=== PATIENT | male | born 1950 | race Caucasian/White ===

== ENCOUNTER 2018-08-22 15:46 | Inpatient (IN) | payer MEDICARE, BC ==
[~2018-08-22 15:46] MED LIST: Lidocaine 1% PF 5 ML VIAL ONE; Ondansetron PF 4 MG/2 ML Vial ONE; PHENYLEPHRINE-NS 100 MCG/ML 10 ML SYRINGE ONE; PROPOFOL 200 MG/20 ML VIAL ONE; Rocuronium Bromide 10 MG/ML (10ML VIAL) ONE; ePHEDrine 50 MG/ML VIAL ONE
[2018-08-22 16:18] LABS: #Eosinphils 0.1 thou/uL (0.0-0.7); #Monocytes 0.8 thou/uL (0.11-0.59); #Neutrophils 13.1 thou/uL (1.40-6.50); %Basophils 0.1 % (0.0-1.0); %Eosinophils 0.5 % (0.0-10.0); %Lymphocytes 6.6 % (21.0-51.0); %Monocytes 5.2 % (0.0-10.0); %Neutrophils 87.6 % (42.0-75.0); Hemoglobin 12.9 g/dL (14.0-18.0); Mean Corpuscular HGB CONC 32.1 g/dL (32.0-36.0); Mean Corpuscular Hemoglobin 28.2 pg (27.0-31.0); Mean Platelet Volume 7.7 fL (7.4-10.4); Platelet Count 171 thou/uL (130-400); RBC Distribution Width 13.6 % (11.5-14.5); Red Blood Cell (RBC) Count 4.57 mill/uL (4.70-6.10); White Blood Cell (WBC) Count 14.9 thou/uL (4.8-10.8)
[2018-08-22 16:25] LABS: INR-International Normal Ratio 1.1; Prothrombin Time 13.8 SEC (12.0-14.7)
[2018-08-22 16:32] LABS: ALT (SGPT) 17 U/L (8-55); AST (SGOT) 28 U/L (5-34); Albumin 4.1 g/dL (3.4-4.8); Alkaline Phosphatase 78 U/L (40-150); Anion Gap 13 mmol/L (10-20); BUN (Urea Nitrogen) 32 mg/dL (8.4-25.7); Bilirubin, Total 0.8 mg/dL (0.2-1.2); Calc. Creatinine Clearance 0 mL/min (70-130); Calcium 9.5 mg/dL (7.8-10.44); Carbon Dioxide 27 mmol/L (23-31); Chloride 102 mmol/L (98-107); Estimated GFR-MDRD 41; Globulin 3.3 g/dL (2.4-3.5); Glucose 145 mg/dL (80-115); Potassium 3.9 mmol/L (3.5-5.1); Protein, Total 7.4 g/dL (5.8-8.1); Sodium 138 mmol/L (136-145)
--- NOTE | 2018-08-22 16:32 | RAD ---
PORTABLE CHEST ONE VIEW: 08/22/18 at 2:54 p.m. HISTORY: Fall. Left hip pain. FINDINGS/IMPRESSION: The heart size is borderline. There is a small right pleural effusion. No lobar consolidation, gabriela pulmonary edema or left pleural effusion is seen. No pneumothoraces are identified. There are postop changes in the cervical spine. Intraspinal leads are seen in the thoracic spine. POS: OFF
--- NOTE | 2018-08-22 16:46 | RAD ---
AP VIEW PELVIS: 08/22/18 HISTORY: Pelvic pain. Fall. AP view pelvis demonstrates surgical hardware seen in the lower lumbar region. Dorsal column stimulat or is in place. There is a proximal left femoral intertrochanteric fracture. No other acute abnormality seen. IMPRESSION: Acute left intertrochanteric fracture. POS: [facility]
--- NOTE | 2018-08-22 16:48 | RAD ---
LEFT FEMUR TWO VIEWS: 08/22/18 HISTORY: Fall. Left hip pain. FINDINGS/IMPRESSION: There is a mildly displaced/angulated fracture involving the base of the neck/intertrochanteric regio n of the left proximal femur. There are postop changes of total knee arthroplasty. 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 POS: OFF
[2018-08-22] MEDS ORDERED: Fentanyl 100 MCG/2 ML VIAL ONE (16:53)
[2018-08-22] MEDS ORDERED: Fleet Enema 133 ML BOT PR PRN (17:35)
[2018-08-22] MEDS ORDERED: Bisacodyl 10 MG SUPP PR PRN (17:35)
[2018-08-22] MEDS ORDERED: Milk Of Magnesia 30 ML UDCUP PO PRN (17:35)
[2018-08-22] MEDS ORDERED: traMADol HCl 50 MG TAB PO PRN ×3 (17:35→18:22)
[2018-08-22] MEDS ORDERED: Ondansetron PF 4 MG/2 ML Vial IVP PRN ×2 (17:35→18:22)
[2018-08-22] MEDS ORDERED: Fentanyl 100 MCG/2 ML VIAL SLOW IVP PRN ×2 (17:37)
[2018-08-22] MEDS ORDERED: Sodium Chloride 0.9% 1,000 ML IV SCH (17:45)
[2018-08-22] MEDS ORDERED: CEFAZOLIN 2 GM in Premix Bag 1 BAG IVPB SCH (17:45)
--- NOTE | 2018-08-22 17:47 | CT ---
CT OF LUMBAR SPINE WITHOUT CONTRAST 08/22/18 INDICATION: Fall and left hip pain and back pain. COMPARISON: CT abdomen and pelvis dated 11/13/16. FINDINGS: There are laminectomy changes of L3 through L5. Small wedge compression abnormality at L2 is stable. Grade I anterolisthesis of L4 and L5 with posterior lumbar interbody fusion. Construct is stable. The re is a dorsal column stimulator entering the posterior spinal canal at T12-L1. There is diffuse oste openia. There is scattered vascular calcifications. There is partial ankylosis of the SI joints. IMPRESSION: 1. No acute fracture or subluxation is evident. 2. Stable multilevel spondylosis of the lumbar spine. POS: [facility]
[2018-08-22] MEDS ORDERED: HYDROcodone/Acetaminophen 5/325 mg Tablet ONE (17:48)
--- NOTE | 2018-08-22 17:51 | CT ---
CT OF THE THORACIC SPINE WITHOUT CONTRAST 08/22/18 INDICATION: Fall with back pain. FINDINGS: There is dorsal column stimulator projecting over T7-T8. There is ACDF involving the visualized C5 th rough C7 vertebral levels. There is diffuse osteopenia. There is DISH-like changes involving the mid to lower thoracic spine. N o acute fracture or subluxation is evident. Small hiatal hernia. Fluid is present within the esophagus and may reflect reflux or esophageal dysm otility. There are scattered vascular calcifications. IMPRESSION: 1. No acute fracture or subluxation demonstrated. 2. Multilevel spondylosis of the thoracic spine. 3. Dorsal column stimulator. POS: [facility]
[2018-08-22] MEDS ORDERED: hydrALAZINE 20 MG/ML VIAL SLOW IVP PRN (18:22)
[2018-08-22] MEDS ORDERED: Dextrose 50% Abboject 50 ML SYRINGE SLOW IVP PRN (18:22)
[2018-08-22] MEDS ORDERED: Promethazine HCl 25 MG/ML VIAL IM PRN (18:22)
[2018-08-22] MEDS ORDERED: Dextrose 5% in Water 1,000 ML IV PRN (18:22)
[2018-08-22 19:05] VITALS: BMI 45.3
[2018-08-22] MEDS: Sodium Chloride 0.9% 1,000 ML IV SCH (20:08)
[2018-08-22] MEDS: Flecainide 50 MG TAB PO SCH (20:09)
[2018-08-22] MEDS: Famotidine 20 MG TAB PO SCH (20:09)
[2018-08-22] MEDS: Gabapentin 300 MG CAP PO SCH (20:09)
[2018-08-22] MEDS: Senokot S 8.6-50 MG TAB PO SCH (20:09)
[2018-08-22] MEDS: Simvastatin 20 MG TAB PO SCH (20:09)
[2018-08-22] MEDS: Acetaminophen 1,000 MG in Premix Bag 1 BAG IVPB SCH (20:09)
[2018-08-22] MEDS: traMADol HCl 50 MG TAB PO PRN (23:34)
[2018-08-23 00:50] LABS: Bilirubin Negative (Negative); Blood, Urine Negative (Negative); Clarity CLEAR (Clear); Glucose, Urine (Dipstick) 100 mg/dL (Negative); Leukocyte Negative (Negative); Nitrite Negative (Negative); Protein, Urine (Dipstick) Negative (Neg-Trace); Specific Gravity, Urine 1.017 (1.002-1.036); Urobilinogen 0.2 mg/dL (0.2-1.0)
--- NOTE | 2018-08-23 01:03 | HP ---
TRAUMA SURGEON: Augie Crawford DO CONSULTING PHYSICIAN: Daniel Paulino MD, Orthopedic Surgery. HISTORY OF PRESENT ILLNESS: Mr. Noel is a 67-year-old male patient who presented to the emergency department via [facility] after he suffered a mechanical fall today. The patient reports that he was trying to walk in a cumbersome area of his home when his left knee gave out. Subsequently, the rollator swiftly moved forward and he fell back onto his buttocks and left hip. At that time, he noted significant left-sided hip and back pain. He does report that he sat back and did hit his head on the ground, but denied loss of consciousness. He does take aspirin every day. He was not able to get up off the floor and EMS arrived and transported the patient via [facility] to the emergency department where he received an x-ray of the chest, pelvis and left femur demonstrating a left intertrochanteric femur fracture. At the time of my evaluation, the patient reported pain was generally located at the left anterior hip. He also did report some back pain and tenderness. He denied nausea, vomiting, or diarrhea. Pain is well controlled with fentanyl, but was quickly wearing off at that time. REVIEW OF SYSTEMS: All additional 10-point review of systems negative except as indicated above. PAST MEDICAL HISTORY: Diabetes, hypertension, colon cancer, obesity, CHF, paroxysmal atrial fibrillation, chronic neck and back pain with surgeries, nerve stimulator to spine. PAST SURGICAL HISTORY: Nerve stimulator placement, C-spine surgery, left knee replacement, 8 inches of colon resected due to colon cancer in 2007. SOCIAL HISTORY: The patient lives at home with his . He denies tobacco, drug, or alcohol use. MEDICATIONS: 1. Aspirin. 2. Flecainide. 3. Toujeo. 4. Victoza. 5. Vitamin D. 6. Magnesium. 7. Eye vitamins. 8. Klor-Con. 9. Furosemide. 10. Gabapentin. 11. Zoloft. 12. Metoprolol. 13. Simvastatin. 14. Ferrous sulfate. 15. Tylenol. ALLERGIES: TO MORPHINE AND CYCLOBENZAPRINE. PHYSICAL EXAMINATION: VITAL SIGNS: Blood pressure 178/82, heart rate 89, respirations 18, oxygen saturation 99% on room air. PRIMARY SURVEY: Airway intact. Adequate breath sounds bilaterally. 2+ distal pulses palpable in the bilateral radials, femorals and DPs. GCS is 15. Gross motor and sensation intact. Pupils are 3-2 bilaterally. No lacerations, bruises, or external bleeding. SECONDARY SURVEY: HEAD: Normocephalic and atraumatic. No gross palpable skull deformities or tenderness. EYES: 3-2, equal, round, reactive to light. ENT: No hemotympanum. No epistaxis. No septal hematoma. Midface stable to manipulation. No blood in the oropharynx. Dentition intact. No anterior neck injury/crepitus/tenderness. C-SPINE: No step-offs or deformities. Nontender. C-collar not in place. CHEST: Nontender. No crepitus. No abrasions or ecchymosis. Equal chest movement. ABDOMEN: Soft, nontender, nondistended. PELVIS: Stable to palpation. Nontender. No abrasions or ecchymosis. RECTAL: Deferred. GENITOURINARY: Deferred. EXTREMITIES: Palpable tenderness to the left anterior thigh. No abrasions or ecchymosis noted. 2+ pulses in the bilateral radials, femorals and DPs. BACK/SPINE: No step-offs or deformities of the T and L-spine. T and L tenderness. No ecchymoses or abrasions noted. NEUROLOGIC: GCS is 15. 5/5 strength in the bilateral enamel burner, plantar flexion, and dorsiflexion. Gross motor and sensation intact x4 extremities. LABORATORY FINDINGS: White count 14.9, hemoglobin 12.9, hematocrit 42.9, platelets 171. INR 1.0. Sodium 138, potassium 3.9, chloride 102, carbon dioxide 26, BUN 32, creatinine 1.68, glucose 145, lactate 1.1. DIAGNOSTIC FINDINGS: Chest x-ray demonstrated the heart size is borderline. There is a small right pleural effusion. No lobar consolidations, flank pulmonary edema or left pulmonary effusion is seen. No pneumothoraces are identified. There are postop changes of the cervical spine. Intraspinal leads are seen in the thoracic spine. X-ray of the pelvis demonstrates acute left intertrochanteric femur fracture. X-ray of the left femur demonstrates there is a mildly displaced/angulated fracture involving the base of the neck/intertrochanteric region of the left proximal femur. There are postoperative changes of the left knee arthroplasty. The large chondroma in the distal shaft of the left femur is stable since 11/20/2016. CT of the T-spine demonstrates no acute fractures or subluxations, demonstrated multiple spondylosis of the thoracic spine, dorsal column stimulator. CT of the L-spine demonstrates no acute fracture or subluxation is evident. Stable multilevel spondylosis of the lumbar spine. ASSESSMENT: 1. Status post mechanical fall from standing. 2. Left intertrochanteric femur fracture. 3. Acute traumatic pain. 4. Acute kidney injury. 5. History of diabetes, hypertension, colon cancer, congestive heart failure, paroxysmal atrial fibrillation, and chronic neck and back pain. PLAN: The patient will be admitted to the Trauma Service and will go to the OR tomorrow with Orthopedic Surgery, Dr. Paulino for fixation of the left femur fracture. He can have a diabetic diet for now and will be n.p.o. at midnight. He will also receive normal saline at 75 an hour. He will have Tylenol, tramadol, and gabapentin for pain with breakthrough morphine. We will re-evaluate this evening and can consider more aggressive pain management if p.o. medications are not effective. We will start home medications such as metoprolol, flecainide, Zoloft, and simvastatin. We will hold all other home medications for now. The patient is to be bed rest. PT/OT to evaluate postoperatively. Trauma was concerned for T and L-spine tenderness and increased pain since the fall. However, CT of the T and L-spine demonstrates no acute fracture or subluxation. Follow up UA results. We will start Pepcid, but we will hold chemo-DVT prophylaxis at this time. The patient previously taking Xarelto for paroxysmal atrial fibrillation, but reports he has not taken it recently. He is only taking aspirin now. The patient will be discussed with Dr. Crawford after this dictation. Job ID: [id number]
--- NOTE | 2018-08-23 01:24 | CON ---
DATE OF CONSULTATION: CONSULTING PHYSICIAN: Daniel Paulino MD REASON FOR CONSULTATION: Left hip intertrochanteric fracture. BRIEF CLINICAL HISTORY: Burak is a 67-year-old white male who was brought to [facility] via air EMS for complaints of left hip pain from [place]. Apparently, he fell landing on his left side with plain radiographs demonstrating a left hip displaced, angulated base neck intertrochanteric hip fracture on the left. The patient will be admitted by Trauma and our service was consulted for definitive orthopedic management of his problem. PAST MEDICAL HISTORY: Significant for diabetes type 2, peripheral vascular disease. PAST SURGICAL HISTORY: Significant for arthroplasty on the left knee as well as revision of same. Apparently, this knee buckled and gave way on him resulting in his fall. MEDICATIONS: Please see nurse's notes and medication reconciliation form. PHYSICAL EXAMINATION: VITAL SIGNS: Please see nurse's note. GENERAL: This is an obese, large male, appearing his stated age, no apparent distress, but uncomfortable. He is alert and appropriate with examiner, responsive. EXTREMITIES: Visual inspection of left lower extremity demonstrates a shortening in external rotation of the left lower extremity relative to the right. He holds it in a semi-flexed position and is quite uncomfortable. Range of motion is not assessed due to an underlying fracture. IMAGING: Imaging studies to the left hip demonstrates a slightly rotated and varus angulated left hip base neck intertrochanteric fracture on the left. PLAN: 1. The patient will be admitted by the Trauma Service. 2. The risks, benefits, options, alternatives, and rationale for proceeding with left hip transfemoral nail with lag screw fixation have been explained in detail with the patient. He is ready to proceed. All questions were answered. No guarantee of outcome stated or implied. 3. The patient has been posted to follow tomorrow morning for the above procedure. 4. Please see orders. Job ID: [id number]
[2018-08-23] MEDS: Acetaminophen 1,000 MG in Premix Bag 1 BAG IVPB SCH ×3 (02:03→14:49)
[2018-08-23] MEDS: traMADol HCl 50 MG TAB PO PRN ×2 (06:10→20:36)
[2018-08-23 06:11] LABS: #Eosinphils 0.1 thou/uL (0.0-0.7); #Monocytes 0.8 thou/uL (0.11-0.59); #Neutrophils 6.4 thou/uL (1.40-6.50); %Basophils 0.5 % (0.0-1.0); %Eosinophils 1.3 % (0.0-10.0); %Lymphocytes 21.1 % (21.0-51.0); %Monocytes 8.3 % (0.0-10.0); %Neutrophils 68.8 % (42.0-75.0); Mean Corpuscular HGB CONC 31.4 g/dL (32.0-36.0); Mean Corpuscular Hemoglobin 27.8 pg (27.0-31.0); Mean Corpuscular Volume 88.5 fL (78.0-98.0); Mean Platelet Volume 8.5 fL (7.4-10.4); Platelet Count 153 thou/uL (130-400); RBC Distribution Width 13.8 % (11.5-14.5); Red Blood Cell (RBC) Count 3.97 mill/uL (4.70-6.10); White Blood Cell (WBC) Count 9.3 thou/uL (4.8-10.8)
[2018-08-23 06:33] LABS: Anion Gap 11 mmol/L (10-20); BUN (Urea Nitrogen) 35 mg/dL (8.4-25.7); Calc. Creatinine Clearance 98 mL/min (70-130); Calcium 8.5 mg/dL (7.8-10.44); Carbon Dioxide 25 mmol/L (23-31); Chloride 102 mmol/L (98-107); Estimated GFR-MDRD 45; Glucose 98 mg/dL (80-115); Magnesium 2.1 mg/dL (1.6-2.6); Phosphorus 3.9 mg/dL (2.3-4.7); Potassium 3.6 mmol/L (3.5-5.1); Sodium 134 mmol/L (136-145)
[2018-08-23] MEDS: Famotidine 20 MG TAB PO SCH ×2 (08:13→20:30)
[2018-08-23] MEDS ORDERED: Tranexamic Acid 1,000 MG/10 ML VIAL ONE (08:55)
[2018-08-23] MEDS ORDERED: Fentanyl 100 MCG/2 ML VIAL SLOW IVP PRN (09:24)
[2018-08-23] MEDS ORDERED: Fleet Enema 133 ML BOT PR PRN (09:24)
[2018-08-23] MEDS ORDERED: Ondansetron PF 4 MG/2 ML Vial IVP PRN (09:24)
[2018-08-23] MEDS ORDERED: Bisacodyl 10 MG SUPP PR PRN (09:24)
[2018-08-23] MEDS ORDERED: Milk Of Magnesia 30 ML UDCUP PO PRN (09:24)
[2018-08-23] MEDS ORDERED: Ondansetron ODT 4 MG TAB PO PRN (09:24)
[2018-08-23] MEDS ORDERED: Cepastat Lozenges 1 LOZ PO PRN (09:24)
[2018-08-23] MEDS ORDERED: Fentanyl 100 MCG/2 ML VIAL ONE ×3 (09:45→12:05)
[2018-08-23] MEDS ORDERED: Ondansetron HCl/PF 4 MG/2 ML Vial IVP PRN ×2 (11:51→11:52)
[2018-08-23] MEDS ORDERED: Promethazine HCl 25 MG/ML VIAL SLOW IVP PRN ×2 (11:51→11:52)
[2018-08-23] MEDS ORDERED: Promethazine HCl 25 MG/ML VIAL IM PRN ×2 (11:51→11:52)
--- NOTE | 2018-08-23 11:51 | RAD ---
TWO VIEWS OF THE LEFT FEMUR. COMPARISON: 08/22/2018. HISTORY: Left femur fracture. FINDINGS/IMPRESSION: Multiple limited intraoperative fluoroscopic views of the left femur were submitted for interpretatio n. The patient has ongoing intramedullary marisa fixation of the intratrochanteric femur fracture. No perihardware lucency is seen. POS: [facility]
[2018-08-23] MEDS ORDERED: Ketorolac Tromethamine 30 MG/ML VIAL IVP PRN (11:52)
[2018-08-23] MEDS ORDERED: Ketorolac Tromethamine 30 MG/ML VIAL ONE (11:57)
[2018-08-23] MEDS ORDERED: Promethazine HCl 25 MG/ML VIAL ONE (12:01)
--- NOTE | 2018-08-23 12:27 | OP ---
DATE OF PROCEDURE: 08/23/2018 PREOPERATIVE DIAGNOSIS: Left hip two-part intertrochanteric fracture. POSTOPERATIVE DIAGNOSIS: Left hip two-part intertrochanteric fracture. PROCEDURE PERFORMED: Left hip short transfemoral nail fixation. ELECTRIC ARC WELDER: Jose Alfredo Peterson PA-C. ANESTHESIA: General via endotracheal tube. COMPONENTS USED: Synthes 12 mm short transfemoral nail with a 105 mm lag screw and a 38 mm distal interlocking screw. FINDINGS: Intertrochanteric fracture as described on plain radiographs. DRAINS: None. SPECIMENS: None. COMPLICATIONS: None. COUNTS: Correct. INDICATION FOR SURGERY: Burak is a 67-year-old male, who fell yesterday resulting in left hip intertrochanteric fracture. He was admitted to the hospital yesterday evening and our service was consulted for definitive treatment of this problem. PROCEDURE IN DETAIL: After informed consent was obtained in the preoperative holding area, the patient received preoperative antibiotics, was taken to the operative suite and positioned appropriately on the fracture table, and after adequate anesthesia was obtained, the patient was positioned appropriately. The left hip was then visualized using fluoroscopy. In-line longitudinal traction and reduction maneuvers were performed until near anatomic reduction was obtained. The left hip and lower extremity were then prepped and draped in usual sterile fashion. Prior to incision, a time-out was called and all members of the surgical team agreed upon site, surgeon, and patient. Once this was completed, a longitudinal incision was made 2 fingerbreadths above the tip of the trochanter noted by palpation. The IT band was then incised sharply. The tip of the trochanter was palpated and using the posterior 1/3 of the trochanter, the guidepin was then placed down the length of the canal. This was confirmed in 2 planes with fluoroscopy. The 15 mm opening reamer was then used to open the tip of the trochanter and the nail was then slid down and malleted firmly into place. The outrigger was then used to place the lag screw guide pin. We chose posterior inferior screw placement and this was over reamed with the lateral cortex reamer and intramedullary reaming was carried up to the appropriate length. The pin was then used to guide the lag screw in place and we used minimal reduction in compression to accomplish this. Once completed, the guidepin was then removed and the outrigger was used to place the distal interlocking screw. We chose a 2-incision technique to perform this. The locking gate was closed on the lag screw. The outrigger was removed and final fluoroscopic films were obtained in AP, lateral, and a 20-degree trauma oblique. Happy with that anatomic reduction, both incisions were copiously irrigated with normal saline and primary closure was accomplished with a 0 in the IT band and 2-0 in subcutaneous layer and stainless steel юлия were used to reapproximate the skin. Sterile dressings were applied to both incisions. Procedure was terminated without any complications. The patient was removed from the fracture table, taken to the recovery room in stable condition. Job ID: [id number]
[2018-08-23] MEDS ORDERED: HYDROcodone/Acetaminophen 10/325 mg Tablet PO PRN (13:11)
[2018-08-23] MEDS: Gabapentin 300 MG CAP PO SCH ×3 (14:47→20:30)
[2018-08-23] MEDS: Flecainide 50 MG TAB PO SCH ×2 (14:47→20:30)
[2018-08-23] MEDS: Polyethylene Glycol 3350 17 GM Packet PO SCH (14:48)
[2018-08-23] MEDS: HYDROcodone/Acetaminophen 10/325 mg Tablet PO PRN (15:13)
[2018-08-23] MEDS: Sodium Chloride 0.9% 1,000 ML IV SCH ×3 (16:04→20:29)
[2018-08-23] MEDS: CEFAZOLIN 2 GM in Premix Bag 1 BAG IVPB SCH (17:10)
[2018-08-23] MEDS: HumaLOG 300 UNITS/3 ML VIAL SC PRN (17:18)
--- NOTE | 2018-08-23 18:05 | PRG ---
DATE OF SERVICE: 08/23/2018 SUBJECTIVE: Mr. Noel is a 67-year-old man who is status post left hip transfemoral nail fixation today to treat an intertrochanteric left femur fracture. Postoperatively, the patient is awake and alert, reporting adequate pain control. He moves all extremities and answers questions appropriately. OBJECTIVE: VITAL SIGNS: Include blood pressure 133/81, pulse is 65, respiratory rate is 16, temperature is 97.6 degrees Fahrenheit, and oxygen saturation 95% on 2 L by nasal cannula oxygen. HEART: Reveals regular rate and rhythm. LUNGS: Clear to auscultation bilaterally. His breathing, regular and nonlabored. ABDOMEN: Soft, nontender, and nondistended. NEUROLOGIC: Reveals no focal deficits present. LABORATORY FINDINGS: Today include a CBC with 9300 white blood cells, hemoglobin and hematocrit 11.0 and 35.2 respectively. Platelet count is 153,000. Metabolic profile; sodium 134, potassium 3.6, chloride is 102, bicarb 25, BUN 35, creatinine is 1.55, glucose is 98, magnesium is 2.1, and phosphorus is 3.9. IMPRESSION: 1. Postoperative day #0, status post transfemoral left hip nail fixation. 2. Stable acute blood loss anemia. 3. Resolving acute on chronic renal insufficiency. 4. Acute hypokalemia. PLAN: 1. Correct abnormal electrolytes. 2. Initiate physical and occupational therapy. 3. Anticipate discharge in next 24 to 48 hours if the patient remains hemodynamically stable and achieving activities of daily living. Job ID: [id number]
[2018-08-23] MEDS ORDERED: Tamsulosin HCl 0.4 MG CAP PO SCH (19:15)
[2018-08-23] MEDS: Senokot S 8.6-50 MG TAB PO SCH ×2 (19:41→20:29)
[2018-08-23] MEDS: Simvastatin 20 MG TAB PO SCH (20:30)
[2018-08-24] MEDS: CEFAZOLIN 2 GM in Premix Bag 1 BAG IVPB SCH (00:17)
[2018-08-24] MEDS: traMADol HCl 50 MG TAB PO PRN ×2 (04:23→13:04)
[2018-08-24 08:01] LABS: Hemoglobin 9.5 g/dL (14.0-18.0); Mean Corpuscular HGB CONC 31.9 g/dL (32.0-36.0); Mean Corpuscular Hemoglobin 27.9 pg (27.0-31.0); Mean Corpuscular Volume 87.6 fL (78.0-98.0); Mean Platelet Volume 8.2 fL (7.4-10.4); Platelet Count 126 thou/uL (130-400); RBC Distribution Width 13.7 % (11.5-14.5); Red Blood Cell (RBC) Count 3.39 mill/uL (4.70-6.10); White Blood Cell (WBC) Count 8.2 thou/uL (4.8-10.8)
[2018-08-24 08:18] LABS: Anion Gap 12 mmol/L (10-20); BUN (Urea Nitrogen) 34 mg/dL (8.4-25.7); Calc. Creatinine Clearance 88 mL/min (70-130); Calcium 8.3 mg/dL (7.8-10.44); Carbon Dioxide 27 mmol/L (23-31); Chloride 99 mmol/L (98-107); Estimated GFR-MDRD 40; Glucose 162 mg/dL (80-115); Sodium 134 mmol/L (136-145)
[2018-08-24] MEDS: Polyethylene Glycol 3350 17 GM Packet PO SCH (08:34)
[2018-08-24] MEDS: Senokot S 8.6-50 MG TAB PO SCH ×2 (08:34→21:00)
[2018-08-24] MEDS: Multivitamin W/ Minerals 1 TAB PO SCH (08:34)
[2018-08-24] MEDS: Tamsulosin HCl 0.4 MG CAP PO SCH (08:34)
[2018-08-24] MEDS: Gabapentin 300 MG CAP PO SCH ×3 (08:35→21:00)
[2018-08-24] MEDS: Famotidine 20 MG TAB PO SCH ×2 (08:35→21:01)
[2018-08-24] MEDS: Ferrous Gluconate 324 MG TAB PO SCH ×2 (08:35→17:14)
[2018-08-24] MEDS: Flecainide 50 MG TAB PO SCH ×2 (08:38→21:00)
[2018-08-24] MEDS ORDERED: Enoxaparin Sodium 40 MG/0.4 ML SYRINGE SC SCH (09:00)
--- NOTE | 2018-08-24 12:11 | PRG ---
DATE OF SERVICE: 08/24/2018 SUBJECTIVE: Burak is a 67-year-old white male, postop day 1 from left hip intertrochanteric femoral fracture secondary to fall, treated with short transfemoral nail yesterday. He is doing relatively well. He has had some episodes of hypotension, therefore his metoprolol has been held and he has not had any Raleigh since yesterday around noon. His hemoglobin is 9.5. OBJECTIVE: VITAL SIGNS: Temperature 99.2, pulse 76, respiratory rate is 20 and unlabored, O2 saturation 95% on room air. His blood pressure is 100/64. GENERAL: He is alert, oriented to person, place, time, and situation. He looks a little pasty, but he is appropriate with examiner and responsive. Color is adequate. EXTREMITIES: Visual inspection of the left lower extremity demonstrates his incision to be clean and closed. He is neurovascular intact. There is no malrotation or shortening of the left lower extremity. IMPRESSION: 1. A 67-year-old male, postop day 1, left hip intertrochanteric fracture treated with transfemoral nail. 2. Diabetes type 2. 3. Hypotension secondary to possibly blood loss. PLAN: 1. Hold the metoprolol. Hold the Raleigh and fentanyl. Treat only with Ultram. 2. Recheck tomorrow. Job ID: [id number]
[2018-08-24] MEDS: HumaLOG 300 UNITS/3 ML VIAL SC PRN ×3 (12:58→21:08)
[2018-08-24] MEDS: HYDROcodone/Acetaminophen 10/325 mg Tablet PO SCH ×2 (13:07→21:02)
--- NOTE | 2018-08-24 16:10 | PRG ---
DATE OF SERVICE: 08/24/2018 SUBJECTIVE: This is a 67-year-old man, who is status post left hip transfemoral nail fixation postop day #1 for repair of an intertrochanteric left femur fracture. It was reported that the patient had some confusion this morning and possibly from too much medication. On exam this morning, the patient is awake, alert, in no distress. Reports the pain is well controlled. The family at bedside and the patient seems to be his normal self and alert and not drowsy. The patient with good appetite and denies any complaints at this time. OBJECTIVE: VITAL SIGNS: Temperature 99.2, pulse 76, respirations 20, SpO2 of 95% on room air, blood pressure 100/64. GENERAL: The patient is awake and alert, in no distress. Lying in bed. HEART: Regular rate and rhythm. LUNGS: Clear to auscultation bilaterally. Breathing is regular and nonlabored. ABDOMEN: Soft, nontender, nondistended. NEUROLOGIC: Reveals no focal deficits. LABORATORY DATA: WBC 8.2, RBC 3.39, hemoglobin 9.5, hematocrit 29.7, platelets 126. Sodium 134, potassium 4.0, chloride 99, CO2 of 27, anion gap 12, BUN 34, creatinine 1.72, estimated GFR 40, glucose 162, calcium 8.3. IMPRESSION: 1. Postoperative day #1 status post transfemoral left hip nail fixation. 2. Stable acute blood loss anemia. 3. Resolving acute on chronic renal insufficiency. PLAN: We will encourage physical and occupational therapy. We will also encourage the patient to get out of bed more and up in the chair. We will discontinue the patient's p.r.n. hydrocodone, and change his schedule to q.8 hours. The patient was taken off Lovenox for DVT prophylaxis and placed on aspirin 81 mg b.i.d. as the patient has chronic renal insufficiency. The patient wishes to go home with on discharge. We will place him in rehab screen in case the patient changes his mind and feels that he does need inpatient rehab. The patient was examined with Dr. Crawford. Job ID: [id number]
[2018-08-24] MEDS: Simvastatin 20 MG TAB PO SCH (21:00)
[2018-08-24] MEDS: Aspirin 81 mg Enteric Coated Tablet PO SCH (21:02)
[2018-08-25 04:53] LABS: Hemoglobin 8.5 g/dL (14.0-18.0); Mean Corpuscular HGB CONC 31.7 g/dL (32.0-36.0); Mean Corpuscular Hemoglobin 28.2 pg (27.0-31.0); Mean Corpuscular Volume 88.7 fL (78.0-98.0); Mean Platelet Volume 8.5 fL (7.4-10.4); Platelet Count 106 thou/uL (130-400); RBC Distribution Width 13.7 % (11.5-14.5); Red Blood Cell (RBC) Count 3.02 mill/uL (4.70-6.10); White Blood Cell (WBC) Count 6.9 thou/uL (4.8-10.8)
[2018-08-25 05:05] LABS: Anion Gap 9 mmol/L (10-20); BUN (Urea Nitrogen) 33 mg/dL (8.4-25.7); Calc. Creatinine Clearance 83 mL/min (70-130); Calcium 8.4 mg/dL (7.8-10.44); Carbon Dioxide 29 mmol/L (23-31); Chloride 99 mmol/L (98-107); Estimated GFR-MDRD 37; Glucose 181 mg/dL (80-115); Sodium 133 mmol/L (136-145)
[2018-08-25] MEDS: HYDROcodone/Acetaminophen 10/325 mg Tablet PO SCH ×3 (05:29→21:00)
[2018-08-25] MEDS: HumaLOG 300 UNITS/3 ML VIAL SC PRN ×4 (05:34→21:01)
[2018-08-25] MEDS ORDERED: Bisacodyl 10 MG SUPP PR SCH (08:30)
[2018-08-25] MEDS: Famotidine 20 MG TAB PO SCH ×2 (08:42→20:58)
[2018-08-25] MEDS: Aspirin 81 mg Enteric Coated Tablet PO SCH ×2 (08:42→20:58)
[2018-08-25] MEDS: Senokot S 8.6-50 MG TAB PO SCH ×2 (08:42→20:58)
[2018-08-25] MEDS: Polyethylene Glycol 3350 17 GM Packet PO SCH (08:42)
[2018-08-25] MEDS: Flecainide 50 MG TAB PO SCH ×2 (08:42→20:58)
[2018-08-25] MEDS: Multivitamin W/ Minerals 1 TAB PO SCH (08:43)
[2018-08-25] MEDS: Gabapentin 300 MG CAP PO SCH ×3 (08:43→20:58)
[2018-08-25] MEDS: Tamsulosin HCl 0.4 MG CAP PO SCH (08:43)
[2018-08-25] MEDS: Ferrous Gluconate 324 MG TAB PO SCH ×2 (08:43→17:55)
--- NOTE | 2018-08-25 15:45 | PRG ---
DATE OF SERVICE: 08/25/2018 SUBJECTIVE: This is a 67-year-old gentleman, who is status post left hip transfemoral nail fixation postop day #2 for repair of his intertrochanteric left femur fracture. The patient is awake and alert today, sitting up on the side of the bed. The patient had no overnight events. The patient reports good appetite and denies any nausea or vomiting. The patient reports good pain control. The patient continues to have Greenberg in place due to his urinary retention post surgery. OBJECTIVE: VITAL SIGNS: Temperature 98.2, pulse 82, respirations 18, SpO2 96% on room air, and blood pressure 109/62. PHYSICAL EXAMINATION: GENERAL: The patient is awake, alert, in no distress. Sitting up on the side of the bed. HEART: Regular rate and rhythm. LUNGS: Clear to auscultation bilaterally. Breathing is regular and nonlabored. No distress. ABDOMEN: Soft, obese, nontender, nondistended. NEUROLOGIC: Reveals no focal deficits. LABORATORY DATA: WBC 6.9, RBC 3.02, hemoglobin 8.5, hematocrit 26.8. Sodium 133, BUN 33, creatinine 1.82, estimated GFR 37, and glucose 181. DIAGNOSTICS: There are no diagnostics to review today. IMPRESSION: 1. Postop day #2 status post transfemoral left hip nail fixation. 2. Stable acute blood loss anemia. 3. Resolving acute on chronic kidney disease stage 3. PLAN: Continue to encourage Physical and Occupational therapy. We will continue to also encourage the patient to get out of the bed more and up in the chair. We will continue the patient's pain regimen. We will continue the patient's aspirin for chemical DVT prophylaxis. The patient still has not had a bowel movement. We will increase the patient's bowel regimen. A rehab screen has been placed. The patient was examined with Dr. Jarvis today during morning rounds. Job ID: [id number] [facility]
--- NOTE | 2018-08-25 17:05 | PQF ---
CLINICAL DOCUMENTATION IMPROVEMENT CLARIFICATION FORM: ICD-10 Updated PLEASE DO AN ADDENDUM TO THE PROGRESS NOTE WITH ANY DOCUMENTATION UPDATES OR ADDITIONS AND CARRY THROUGH TO DC SUMMARY. THANK YOU. DATE: 08/25/2018; 08/26/2018 ATTN: KERLINE Lucas [facility] Please exercise your independent, professional judgment in responding to the clarification form. Clinical indicators are provided on the bottom of this form for your review Please check appropriate box(s): [ ] Acute Renal Failure (ARF) / Acute Kidney Injury (NITIN) [ ] Acute on Chronic Renal Failure please specify Stage of CKD (see below) [ ] CKD without ARF/NITIN please specify Stage of CKD [ ] Other diagnosis [ ] Unable to determine In addition, please specify: Present on Admission (POA): [ ] Yes [ ] No [ ] Unable to determine For continuity of documentation, please document condition throughout progress notes and discharge summary. Thank You. CLINICAL INDICATORS - SIGNS / SYMPTOMS / LABS H&P 08/22: creatinine 1.68 Acute kidney injury PN 08/25: creatinine 1.82 estimated GFR 37 Resolving acute on chronic renal insufficiency. RISKS: H&P: Medications: Aspirin. Furosemide Hx of diabetes, hypertension, colon cancer, congestive heart failure. TREATMENT: Order 08/22-08/24: NS IV 75 mls/hr National Kid[employer] Guidelines for CKD Staging Stage I Kidney damage with normal or increased GFR GFR > 90 Stage II Kidney damage with mildly decreased GFR GFR 60-89 Stage III Kidney damage with moderately decreased GFR GFR 30-59 Stage IV Kidney damage with severely decreased GFR GFR 16-29 Stage V Kidney failure GFR < 15 ESRD End Stage Renal Disease On dialysis Acute Renal Failure/Acute Kidney Failure defined as: Increases in SCr by (>) 0.3 mg/dl within 48 hours OR- Increases in SCr by (>) 1.5 times baseline, known or presumed to have occurred within the prior 7 days OR- Urine volume < 0.5 ml/kg/hour for 6 hours (KDIGO supplement 2012 for RIFLE/RICHARD criteria) Thank you, Clary. (This form is maintained as a part of the permanent medical record) 2014 [employer] All Rights Reserved Clary Bradford RN, BSN [email or web address] Office: [phone] [facility]
[2018-08-25] MEDS: Simvastatin 20 MG TAB PO SCH (20:58)
[2018-08-26 05:29] LABS: Hemoglobin 7.9 g/dL (14.0-18.0); Mean Corpuscular HGB CONC 32.8 g/dL (32.0-36.0); Mean Corpuscular Hemoglobin 28.5 pg (27.0-31.0); Mean Platelet Volume 8.5 fL (7.4-10.4); Platelet Count 116 thou/uL (130-400); RBC Distribution Width 13.6 % (11.5-14.5); Red Blood Cell (RBC) Count 2.78 mill/uL (4.70-6.10); White Blood Cell (WBC) Count 6.6 thou/uL (4.8-10.8)
[2018-08-26] MEDS: HYDROcodone/Acetaminophen 10/325 mg Tablet PO SCH ×2 (05:38→14:08)
[2018-08-26] MEDS: HumaLOG 300 UNITS/3 ML VIAL SC PRN ×3 (05:38→17:29)
[2018-08-26 05:42] LABS: Anion Gap 8 mmol/L (10-20); BUN (Urea Nitrogen) 31 mg/dL (8.4-25.7); Calc. Creatinine Clearance 107 mL/min (70-130); Calcium 8.6 mg/dL (7.8-10.44); Carbon Dioxide 30 mmol/L (23-31); Chloride 101 mmol/L (98-107); Estimated GFR-MDRD 50; Glucose 184 mg/dL (80-115); Sodium 135 mmol/L (136-145)
--- NOTE | 2018-08-26 08:09 | PRG ---
DATE OF SERVICE: 08/26/2018 SUBJECTIVE: Burak is still essentially bed-bound because of his fall and his left hip fracture. He is postop day 3 from a long trochanteric nail fixation. He complains bitterly of instability of the left knee, which is very difficult for him to stand and walk because of this. He had it replaced in January by Dr. Zavaleta in the [place] and the knee has never been trustworthy and has always been unstable and hyperextends with trying attempts at walking. OBJECTIVE: GENERAL: The patient is alert and oriented to person, place, time, and situation. VITAL SIGNS: Temperature 98.7, pulse 89, respiratory rate 16, O2 saturation 96% on room air, and blood pressure 115/69. EXTREMITIES: Visual inspection of the left knee demonstrates him to indeed have instability with drawer, varus-valgus stressing with significant widening medially but with a good endpoint. Also, the knee hyperextends with passive extension about 7 to 10 degrees. His hip is unchanged. There is no strike through. IMPRESSION: 1. A 67-year-old white male on postop day 3, left hip intertrochanteric fracture treated with a long transfemoral nail. 2. Six months postop left knee, very unstable. PLAN: I had a long discussion with Burak regarding his current condition of his hip fracture being primary problem . We will see him back in few months and give consideration to revision arthroplasty if needed. We will obtain three views of the left knee. Job ID: [id number]
--- NOTE | 2018-08-26 08:29 | RAD ---
LEFT KNEE 4 VIEWS: Date: 08/26/18 HISTORY: Instability. FINDINGS: Post total knee arthroplasty changes are noted. Stable distal femoral metadiaphyseal enchondroma. No evidence of dislocation. No periprosthetic fracture. IMPRESSION: No periprosthetic fracture or dislocation. Stable distal femoral enchondroma. POS: [facility]
[2018-08-26] MEDS: Senokot S 8.6-50 MG TAB PO SCH (08:57)
[2018-08-26] MEDS: Flecainide 50 MG TAB PO SCH (08:57)
[2018-08-26] MEDS: Ferrous Gluconate 324 MG TAB PO SCH ×2 (08:57→17:29)
[2018-08-26] MEDS: Multivitamin W/ Minerals 1 TAB PO SCH (08:57)
[2018-08-26] MEDS: Aspirin 81 mg Enteric Coated Tablet PO SCH (08:58)
[2018-08-26] MEDS: Famotidine 20 MG TAB PO SCH (08:58)
[2018-08-26] MEDS: Tamsulosin HCl 0.4 MG CAP PO SCH (08:58)
[2018-08-26] MEDS: Gabapentin 300 MG CAP PO SCH ×2 (08:58→14:03)
[2018-08-26] MEDS: Polyethylene Glycol 3350 17 GM Packet PO SCH (09:00)
[2018-08-26 11:27] VITALS: TEMP 98.2
--- NOTE | 2018-08-26 13:35 | PRG ---
DATE OF SERVICE: 08/26/2018 SUBJECTIVE: Mr. Noel was seen this morning sitting up in bed, having breakfast. Reported pain was well controlled and denied any nausea, vomiting, or diarrhea. Stated, he slept well overnight and has been working on Physical Therapy. He has only been able to stand up. Greenberg still in place for urinary retention two days ago. He is open to trying a void trial today. States that Orthopedic Surgery came by and they discussed the unsteadiness he feels in his left knee. He does have a left knee replacement. Ortho to obtain plain films for further evaluation. OBJECTIVE: VITAL SIGNS: Temperature 98.2, pulse 82, respirations 18, oxygen saturation 95% on room air, blood pressure 129/76. GENERAL: Well-appearing, obese, elderly male, sitting up in bed with no signs of acute distress. PULMONARY: Equal chest rise and fall. Clear breath sounds bilaterally. No signs of pulmonary distress. CARDIAC: Regular rate and rhythm. No murmurs, gallops, or rubs. GI: Abdomen is soft, nontender, nondistended. EXTREMITIES: 2+ pulses in all extremities. Gross motor and sensation intact in all extremities. Left thigh postop bandage is clean, dry, and intact. No significant swelling noted. LABORATORY FINDINGS: White count 6.6, hemoglobin 7.9, hematocrit 24.2, platelets 116. Sodium 135, potassium 4.0, chloride 101, carbon dioxide 30, BUN 31, creatinine 1.42, glucose 184. DIAGNOSTIC FINDINGS: X-ray of the left knee completed today, demonstrates no periprosthetic fracture or dislocation, stable distal femoral enchondroma. ASSESSMENT: 1. Status post mechanical fall from standing. 2. Left intertrochanteric femur fracture. 3. Acute kidney injury, improving. 4. Postop urinary retention. 5. History of diabetes; hypertension; colon cancer, status post resection; congestive heart failure; paroxysmal atrial fibrillation; and multiple neck and back surgeries. PLAN: We will continue current diet and pain regimen. The patient continues to work with PT and OT and is appropriate for [facility] which is what he has chosen. We will discontinue Greenberg today and try void trial and we will continue Flomax as well. If the patient is able to urinate today, he can be discharged. Otherwise, he will stay in the hospital. The patient was discussed with Dr. Crawford this morning after rounds. Job ID: [id number]
[2018-08-26] MEDS: HYDROcodone/Acetaminophen 10/325 mg Tablet PO PRN (14:03)
[2018-08-26 16:05] VITALS: BP 113/69
--- NOTE | 2018-08-27 04:47 | DIS ---
DATE OF ADMISSION: 08/22/2018 DATE OF DISCHARGE: 08/26/2018 ADMISSION DIAGNOSES: Mechanical fall from standing, left intertrochanteric femur fracture, and acute kidney injury. DISCHARGE DIAGNOSES: Mechanical fall from standing, left intertrochanteric femur fracture, and postop urinary retention. CONSULTING PHYSICIAN: Daniel Paulino MD HOSPITAL COURSE: Mr. Noel is a 67-year-old male patient who was a mechanical fall from standing when his left knee buckled. He subsequently came to the emergency department and was found to have a left intertrochanteric femur fracture. He went to the OR on the with Dr. Paulino and had a left hip short transfemoral nail. Postoperatively, he worked with Physical and Occupational Therapy. He was able to stand, but not ambulate. Greenberg was removed and the patient had postop urinary retention. He does not have a history of urinary retention. Greenberg was placed and the patient was placed on Flomax. He was also given a bowel regimen and subsequently had a bowel movement. At the time of discharge, the patient was tolerating a diet and pain was well controlled, having bowel movements and urinating with a Greenberg without difficulties. He will be discharged to [facility] bed. DISCHARGE DISPOSITION: Swing bed [facility], [facility]. DISCHARGE CONDITION: Satisfactory. PHYSICAL EXAMINATION: GENERAL: Obese, elderly male, sitting up in bed with no signs of acute distress. PULMONARY: Clear breath sounds bilaterally. Equal chest rise and fall. No signs of acute pulmonary distress. CARDIAC: Regular rate and rhythm. No murmurs, gallops, or rubs. GASTROINTESTINAL: Soft, nontender, nondistended. EXTREMITIES: 2+ pulses in all extremities. Gross motor and sensation intact in all extremities. No significant swelling noted. DISCHARGE INSTRUCTIONS: The patient was discharged to a [facility] facility with orthopedic limitations, use assistance when needed to ambulate. He is on a diabetic diet. He will receive physical and occupational therapies and incentive spirometry. He will have wound care, and discontinue the юлия in 14 to 16 days. DISCHARGE MEDICATIONS: Include; 1. Aspirin. 2. Fergon. 3. Flecainide. 4. Gabapentin. 5. Milk of magnesia. 6. Metoprolol. 7. Multivitamins. 8. MiraLAX. 9. Senokot. 10. Zoloft. 11. Zocor. 12. Lasix. 13. [place] 10. 14. Lisinopril. 15. Zaroxolyn. 16. Flomax. FOLLOWUP APPOINTMENTS: He will follow up with Dr. Paulino in 2 to 3 weeks. This is merely a summary of the patient's hospitalization. For full details, please see his medical chart in its entirety. Job ID: [id number]
== END 2018-08-26 20:05 | disposition swing bed (61) | DRG 481 ==
LOC: ERS 15:46 → SURG B 18:31
PROVIDERS: ADMIT Surgery; ATTEND Surgery
PROC: 0QS736Z Reposition Left Upper Femur with Intramedullary Internal Fixation Device, Percutaneous Approach (ICD-10-PCS; principal; 2018-08-23)
DX: S72.142A Displaced intertrochanteric fracture of left femur, initial encounter for closed fracture (principal); N17.9 Acute kidney failure, unspecified; Z68.42 Body mass index [BMI] 45.0-49.9, adult; D62 Acute posthemorrhagic anemia; I95.9 Hypotension, unspecified; I11.0 Hypertensive heart disease with heart failure; I50.9 Heart failure, unspecified; E11.9 Type 2 diabetes mellitus without complications; G89.11 Acute pain due to trauma; E66.9 Obesity, unspecified; R33.9 Retention of urine, unspecified; Z85.038 Personal history of other malignant neoplasm of large intestine; Z88.5 Allergy status to narcotic agent; Z88.8 Allergy status to other drugs, medicaments and biological substances; Z79.84 Long term (current) use of oral hypoglycemic drugs; Z79.82 Long term (current) use of aspirin; Z79.899 Other long term (current) drug therapy; Z96.652 Presence of left artificial knee joint; W18.39XA Other fall on same level, initial encounter
CPT/HCPCS: 36415; 36416; 71045; 72128; 72131; 72170; 76000; 80048; 80053; 81003; 83605; 83735; 84100; 85025; 85027; 85610; 85730; 93005; 96374; C1713; C1769; G0283-GP; J0131; J1650; J1885; J2001; J2405; J2550; J2704; J3010; J3490

== ENCOUNTER 2019-07-16 08:09 | Outpatient (CLI) | payer MEDICARE, BC ==
[2019-07-16 13:19] LABS: #Eosinphils 0.1 thou/uL (0.0-0.7); #Lymphocytes 1.5 thou/uL (1.20-3.40); #Monocytes 0.6 thou/uL (0.11-0.59); #Neutrophils 7.6 thou/uL (1.40-6.50); %Basophils 0.2 % (0.0-1.0); %Eosinophils 1.4 % (0.0-10.0); %Lymphocytes 15.5 % (21.0-51.0); %Monocytes 5.6 % (0.0-10.0); %Neutrophils 77.3 % (42.0-75.0); Hemoglobin 13.2 g/dL (14.0-18.0); Mean Corpuscular HGB CONC 32.4 g/dL (32.0-36.0); Mean Corpuscular Hemoglobin 31.5 pg (27.0-31.0); Platelet Count 163 thou/uL (130-400); RBC Distribution Width 13.6 % (11.5-14.5); Red Blood Cell (RBC) Count 4.19 mill/uL (4.70-6.10); White Blood Cell (WBC) Count 9.8 thou/uL (4.8-10.8)
[2019-07-16 13:23] LABS: INR-International Normal Ratio 1.1; Prothrombin Time 14.6 SEC (12.0-14.7)
[2019-07-16 13:46] LABS: Bacteria/HPF None Seen HPF (None Seen); Bilirubin Negative (Negative); Blood, Urine Negative (Negative); Clarity Clear (Clear); Glucose, Urine (Dipstick) Normal (Negative); Leukocyte Negative Leu/uL (Negative); Nitrite Negative (Negative); Protein, Urine (Dipstick) 10 mg/dL (Neg-Trace); RBC/HPF 0-3 HPF (0-3); Squamous Epithelial 0-3 HPF (0-3); Urobilinogen Normal mg/dL (Less than 2); WBC/HPF 0-3 HPF (0-3)
[2019-07-16 13:47] LABS: Anion Gap 14 mmol/L (10-20); BUN (Urea Nitrogen) 18 mg/dL (8.4-25.7); Calc. Creatinine Clearance 0 mL/min (70-130); Calcium 8.8 mg/dL (7.8-10.44); Carbon Dioxide 29 mmol/L (23-31); Chloride 102 mmol/L (98-107); Estimated GFR-MDRD 47; Glucose 152 mg/dL (80-115); Sodium 141 mmol/L (136-145)
== END 2019-07-16 08:10 | disposition home or self-care (01) ==
LOC: LABBT 08:09
PROVIDERS: ATTEND Orthopaedic Surgery
DX: Z01.818 Encounter for other preprocedural examination (principal); M25.262 Flail joint, left knee
CPT/HCPCS: 80048; 81001; 85025; 85610; 87081; 93005; 93010

== ENCOUNTER 2019-07-16 11:00 | Inpatient (IN) | payer MEDICARE, BC ==
[2019-07-23] MEDS ORDERED: Tranexamic Acid 1,000 MG/10 ML VIAL ONE (06:12)
[2019-07-23] MEDS ORDERED: Sodium Chloride 0.9% 100 ML ONE (06:12)
[2019-07-23] MEDS ORDERED: Polyethylene Glycol 3350 17 GM Packet PO PRN (06:34)
[2019-07-23] MEDS ORDERED: HYDROcodone/Acetaminophen 10/325 mg Tablet PO PRN ×3 (06:35→07:28)
[2019-07-23] MEDS ORDERED: Acetaminophen 325 MG TAB PO PRN ×2 (06:35→07:28)
[2019-07-23] MEDS ORDERED: Ondansetron PF 4 MG/2 ML Vial IVP PRN ×2 (06:35→07:28)
[2019-07-23] MEDS ORDERED: Promethazine HCl 25 MG/ML VIAL IM PRN ×3 (06:35→08:07)
[2019-07-23] MEDS ORDERED: diphenhydrAMINE 25 MG CAP PO PRN (06:35)
[2019-07-23] MEDS ORDERED: Zolpidem Tartrate 5 MG TAB PO PRN ×2 (06:35→07:28)
[2019-07-23] MEDS ORDERED: Fentanyl 100 MCG/2 ML VIAL SLOW IVP PRN ×2 (06:35)
[2019-07-23] MEDS ORDERED: Fentanyl 100 MCG/2 ML VIAL ONE ×5 (06:36→10:47)
[2019-07-23] MEDS ORDERED: Midazolam HCl 2 mg/2 ml Vial ONE (06:36)
[2019-07-23] MEDS ORDERED: Ropivacaine HCl/PF 250 ML in Premix Bag 1 BAG NERVE BLCK SCH (07:28)
[2019-07-23] MEDS ORDERED: traMADol HCl 50 MG TAB PO PRN ×2 (07:28)
[2019-07-23] MEDS ORDERED: Fentanyl 100 MCG/2 ML VIAL IV PRN (07:28)
[2019-07-23] MEDS ORDERED: Ondansetron HCl/PF 4 MG/2 ML Vial IVP PRN (08:07)
[2019-07-23] MEDS ORDERED: Promethazine HCl 25 MG/ML VIAL SLOW IVP PRN (08:07)
[2019-07-23] MEDS ORDERED: Furosemide 40 MG TAB PO SCH (09:00)
[2019-07-23] MEDS ORDERED: Insulin Glargine 30 UNITS in Pre-Filled Syringe 1 EACH SC SCH (09:00)
[2019-07-23] MEDS ORDERED: INSULIN GLARGINE HUM REC ANLOG 30 UNIT SC SCH (09:00)
[2019-07-23] MEDS ORDERED: Liraglutide [Victoza 3-Pak] 1.8 MG SC SCH (09:00)
--- NOTE | 2019-07-23 11:01 | OP ---
DATE OF PROCEDURE: 07/23/2019 PREOPERATIVE DIAGNOSIS: Failed left total knee replacement. POSTOPERATIVE DIAGNOSIS: Failed left total knee replacement. PROCEDURE PERFORMED: Left total knee revision arthroplasty. All component using a Ivel triathlon tibia size 5 with a 20 mm stem, size 5 femur with a 21-mm uncemented 100 stem with two 5 mm distal augments, 22 mm TS X3 polyethylene tibia. DESCRIPTION OF PROCEDURE: The patient was taken to the operating room, where general anesthesia was induced. Left leg was prepped and draped in usual sterile fashion. Examination revealed about 10 degrees of hyperextension and gross instability. I opened up his old scar, which was very irregularly shaped scar. Dissection was carried down to the extensor mechanism, which was opened. I performed a synovectomy and recreated the gutters, cleaned out lateral to the patella. The poly was removed. I cleaned up the posterior compartment. The femur was removed with an oscillating saw. The tibia was removed with an oscillating saw, punches, and osteotomes. Very good bone preservation was obtained with this technique. The tibia and femur were reamed up to size 21 on the femur and 20 on the tibia. These were the permanent implants that were used. I placed tibial trial cutting guide after making a cleanup cut. Polyethylene appeared to be a most appropriate a 22 distal femur augments. Distal femoral cutting guide was placed and the extension gap was adjusted appropriately. I then cut the femur in the usual fashion. Trials were removed. Irrigation performed. Permanent implants were cemented in place. I trialed again with a 22 mm tibia with greatest stability throughout the range of motion and full extension with good stability. Trials were removed. Permanent implants were packed into place. Knee was irrigated again. Retinaculum was repaired with #2 Vicryl and #2 Quill, subcu with 0 Quill, and skin was closed with 2-0 Prolene. Sterile dressing was applied. Job ID: [id number]
[2019-07-23] MEDS ORDERED: Lidocaine 1% PF 5 ML VIAL ONE (11:02)
[2019-07-23] MEDS ORDERED: EPHEDRINE 25 MG/5 ML SYRINGE ONE (11:02)
[2019-07-23] MEDS ORDERED: Bupivacaine HCl 0.5%/Epinephrine 1:200,000/PF 30 ml Vial ONE (11:02)
[2019-07-23] MEDS ORDERED: Ondansetron PF 4 MG/2 ML Vial ONE (11:02)
[2019-07-23] MEDS ORDERED: PROPOFOL 200 MG/20 ML VIAL ONE (11:02)
[2019-07-23] MEDS ORDERED: Ropivacaine 0.2% HCl/PF (40 MG/20 ML VIAL) ONE (11:02)
--- NOTE | 2019-07-23 11:33 | RAD ---
LEFT KNEE 2 VIEWS: Date: 07/23/2019 HISTORY: Postop total knee replacement. FINDINGS: A knee prosthesis has been placed. Both the femoral and tibial components have intramedullary compone nts. There is good overall alignment and no evidence of fracture. Air is seen in the soft tissues and joint space. 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 IMPRESSION: Satisfactory placement of knee prosthesis. POS: [facility]
[2019-07-23 12:01] VITALS: BMI 46.3
[2019-07-23] MEDS: Gabapentin 300 MG CAP PO SCH ×2 (13:40→20:31)
[2019-07-23] MEDS: Aspirin 81 mg Enteric Coated Tablet PO SCH ×2 (13:40→20:31)
[2019-07-23] MEDS: Sodium Chloride 0.9% 1,000 ML IV SCH ×2 (13:40→20:34)
[2019-07-23] MEDS: Loratadine 10 MG TAB PO SCH (13:41)
[2019-07-23] MEDS: Potassium Chloride 10 MEQ TAB PO SCH ×2 (13:41→20:31)
[2019-07-23] MEDS: Senokot S 8.6-50 MG TAB PO SCH ×2 (13:41→20:31)
[2019-07-23] MEDS: Magnesium Oxide 400 MG TAB PO SCH (13:41)
[2019-07-23] MEDS: Stress 600 With Zinc 1 TAB PO SCH (13:42)
[2019-07-23] MEDS: Ketorolac Tromethamine 30 MG/ML VIAL IVP SCH ×2 (14:00→21:55)
[2019-07-23] MEDS: CEFAZOLIN 2 GM in Premix Bag 1 BAG IVPB SCH ×2 (14:00→21:55)
[2019-07-23] MEDS: HYDROcodone/Acetaminophen 10/325 mg Tablet PO PRN ×3 (14:12→22:13)
[2019-07-23] MEDS ORDERED: Dextrose 50% Abboject 50 ML SYRINGE SLOW IVP PRN (14:22)
[2019-07-23] MEDS ORDERED: Dextrose 5% in Water 1,000 ML IV PRN (14:22)
--- NOTE | 2019-07-23 14:34 | PDOC.HOSPP ---
- Subjective Encounter Date: 07/23/19 Encounter Time: 11:50 Subjective: Patient seen and examined. No new complaints. s/p Left Total Knee Revision. Consulted for medical management. - Objective Vital Signs & Weight: Vital Signs (12 hours) Temp Pulse Resp BP Pulse Ox 07/23/19 11:15 98.1 F 87 16 140/80 97 Weight Weight 337 lb Additional Labs: Laboratory Tests 08/27/18 07/16/19 04:46 12:50 Sodium 141 Creatinine 1.49 H Glucose 152 H Hemoglobin A1c 6.7 H EKG Reviewed by me: Yes (afib) Hospitalist ROS - Review of Systems Constitutional: denies: fever, chills, sweats, weakness, malaise, other Respiratory: denies: cough, dry, shortness of breath, hemoptysis, SOB with excertion, pleuritic pain, sputum, wheezing, other Cardiovascular: denies: chest pain, palpitations, orthopnea, paroxysmal noc. dyspnea, edema, light headedness, other Gastrointestinal: denies: nausea, vomiting, abdominal pain, diarrhea, constipation, melena, hematochezia, other - Medication Medications: Active Medications Generic Name Dose Route Start Last Admin Trade Name Freq PRN Reason Stop Dose Admin Hydrocodone Bitart/Acetaminophen 2 tab 07/23/19 07:28 07/23/19 14:12 [place] 10/325 PO 2 tab Q4H PRN Administration PAIN (4-6) Aspirin 81 mg 07/23/19 09:00 07/23/19 13:40 Ecotrin PO Not Given BID [facility] Fentanyl 50 mcg 07/23/19 07:28 07/23/19 12:14 Sublimaze IV 50 mcg Q1H PRN Administration BREAKTHROUGH PAIN Gabapentin 300 mg 07/23/19 09:00 07/23/19 13:40 Neurontin PO Not Given BID [facility] Cefazolin Sodium/Dextrose 2 gm 50 mls @ 100 mls/hr 07/23/19 14:00 07/23/19 14 :00 / Device IVPB 07/23/19 22:29 50 mls Q8HR CH[facility]IN[facility]O Administration Sodium Chloride 1,000 mls @ 100 mls/hr 07/23/19 06:45 07/23/19 13:40 Normal Saline 0.9% IV Not Given .Q10H [facility] Ketorolac Tromethamine 15 mg 07/23/19 14:00 07/23/19 14:00 Toradol IVP 07/25/19 14:01 15 mg Q8HR [facility]O Administration Loratadine 10 mg 07/23/19 09:00 07/23/19 13:41 Claritin PO Not Given DAILY [facility] Magnesium Oxide 400 mg 07/23/19 09:00 07/23/19 13:41 Magnesium Oxide PO Not Given DAILY [facility] Multivitamins/Zinc 1 tab 07/23/19 09:00 07/23/19 13:42 Stress 600 With Zinc PO Not Given DAILY [facility] Pantoprazole Sodium 40 mg 07/23/19 09:00 07/23/19 13:41 Protonix PO Not Given DAILY [facility] Potassium Chloride 10 meq 07/23/19 09:00 07/23/19 13:41 Klor-Con 10 PO Not Given BID [facility] Senna/Docusate Sodium 2 tab 07/23/19 09:00 07/23/19 13:41 Senokot S PO Not Given BID [facility] Sertraline HCl 100 mg 07/23/19 09:00 07/23/19 13:41 Zoloft PO Not Given DAILY [facility] - Exam General Appearance: NAD, awake alert Heart: no murmur, no gallops, no rubs, normal peripheral pulses, irregular Heart - other findings: chronic paroxsymal Afib, rate controlled Respiratory: CTAB, no wheezes, no rales, no ronchi Gastrointestinal: soft, non-tender, no guarding, no rigidity, diminished bowl sounds Gastrointestinal - other findings: eating lunch Psychiatric: normal affect, A&O x 3 Hosp A/P - Plan plan discussed w/ family Impression: HTN, chronic DMII HLD Paroxysmal Afib, chronic, rate controlled Plan: Restart home medications Accucheck AC/HS and 0200 Mod. Sliding scale Hold Lasix, restart tomorrow evening Continue ASA DVT prophylaxis per [facility] protocol Continue IVF Hemogram in AM Full Code Discussed with patient and spouse at bedside.
[2019-07-23] MEDS: Insulin Glargine 15 UNITS in Pre-Filled Syringe 1 EACH SC SCH (20:30)
[2019-07-23] MEDS: HumaLOG 300 UNITS/3 ML VIAL SC PRN (20:30)
[2019-07-23] MEDS: Lisinopril 2.5 MG TAB PO SCH (20:31)
[2019-07-23] MEDS: Simvastatin 20 MG TAB PO SCH (20:32)
[2019-07-23] MEDS ORDERED: Non-Formulary Item 1 EACH (Insulin Glargine,Hum.Rec.Anlog [Toujeo Solostar] 15 UNITS) SC SCH (21:00)
[2019-07-24] MEDS: HYDROcodone/Acetaminophen 10/325 mg Tablet PO PRN (03:28)
[2019-07-24 05:13] LABS: Hemoglobin 10.4 g/dL (14.0-18.0); Mean Corpuscular HGB CONC 31.9 g/dL (32.0-36.0); Mean Corpuscular Hemoglobin 30.8 pg (27.0-31.0); Mean Corpuscular Volume 96.7 fL (78.0-98.0); Mean Platelet Volume 8.8 fL (7.4-10.4); Platelet Count 130 thou/uL (130-400); RBC Distribution Width 13.5 % (11.5-14.5); Red Blood Cell (RBC) Count 3.36 mill/uL (4.70-6.10); White Blood Cell (WBC) Count 10.6 thou/uL (4.8-10.8)
[2019-07-24] MEDS: Ketorolac Tromethamine 30 MG/ML VIAL IVP SCH ×3 (06:03→21:42)
[2019-07-24] MEDS: Sodium Chloride 0.9% 1,000 ML IV SCH ×3 (06:04→21:52)
--- NOTE | 2019-07-24 08:26 | PDOC.HOSPP ---
- Subjective Encounter Date: 07/24/19 Encounter Time: 08:24 Subjective: Patient seen and examined s/p left total knee replacement. Reports some mild nausea, denies any abdominal pain or vomiting. Passing flatus, Feels ready for BM. Ambulated with PT, tolerated well. Pain controlled. No overnight events. - Objective Vital Signs & Weight: Vital Signs (12 hours) Temp Pulse Resp BP BP Pulse Ox 07/24/19 07:28 98.4 F 60 18 90/52 L 100 07/24/19 03:12 98.3 F 77 18 101/65 92 L 07/23/19 23:30 98.7 F 72 18 104/58 L 96 07/23/19 20:31 90 139/69 Weight Weight 337 lb I&O: 07/23/19 07/24/19 07/25/19 06:59 06:59 06:59 Intake Total 800 Output Total 150 Balance 650 Result Diagrams: 07/24/19 04:51 Additional Labs: Accuchecks 07/24/19 07/23/19 07/23/19 03:41 20:17 15:18 POC Glucose 187 H 258 H 265 H Hospitalist ROS - Review of Systems Constitutional: denies: fever, chills, sweats, weakness, malaise, other Respiratory: denies: cough, dry, shortness of breath, hemoptysis, SOB with excertion, pleuritic pain, sputum, wheezing, other Cardiovascular: denies: chest pain, palpitations, orthopnea, paroxysmal noc. dyspnea, edema, light headedness, other Gastrointestinal: reports: nausea. denies: vomiting, abdominal pain, diarrhea - Medication Medications: Active Medications Generic Name Dose Route Start Last Admin Trade Name Freq PRN Reason Stop Dose Admin Hydrocodone Bitart/Acetaminophen 2 tab 07/23/19 07:28 07/24/19 03:28 [place] 10/325 PO 2 tab Q4H PRN Administration PAIN (4-6) Aspirin 81 mg 07/23/19 09:00 07/23/19 20:31 Ecotrin PO 81 mg BID CH[facility]INCITO Administration Cholecalciferol 5,000 units 07/23/19 21:00 07/23/19 20:31 Vitamin D3 PO 5,000 units HS [facility] Administration Fentanyl 50 mcg 07/23/19 07:28 07/23/19 12:14 Sublimaze IV 50 mcg Q1H PRN Administration BREAKTHROUGH PAIN Gabapentin 300 mg 07/23/19 09:00 07/23/19 20:31 Neurontin PO 300 mg BID [facility] Administration Sodium Chloride 1,000 mls @ 100 mls/hr 07/23/19 06:45 07/24/19 06:04 Normal Saline 0.9% IV 1,000 mls .Q10H [facility] Administration Insulin Glargine 15 units/ 0.15 mls @ 0 mls/hr 07/23/19 21:00 07/23/19 20:30 Miscellaneous Medication SC 0.15 mls HS [facility] Administration Insulin Human Lispro 0 units 07/23/19 14:22 07/23/19 20:30 Humalog SC 6 unit .MODERATE SLIDING SC PRN Administration Moderate Correctional Scale Ketorolac Tromethamine 15 mg 07/23/19 14:00 07/24/19 06:03 Toradol IVP 07/25/19 14:01 15 mg Q8HR [facility] Administration Lisinopril 2.5 mg 07/23/19 21:00 07/23/19 20:31 Zestril PO 2.5 mg HS [facility] Administration Loratadine 10 mg 07/23/19 09:00 07/23/19 13:41 Claritin PO Not Given DAILY [facility] Magnesium Oxide 400 mg 07/23/19 09:00 07/23/19 13:41 Magnesium Oxide PO Not Given DAILY [facility] Multivitamins/Zinc 1 tab 07/23/19 09:00 07/23/19 13:42 Stress 600 With Zinc PO Not Given DAILY [facility] Pantoprazole Sodium 40 mg 07/23/19 09:00 07/23/19 13:41 Protonix PO Not Given DAILY [facility] Potassium Chloride 10 meq 07/23/19 09:00 07/23/19 20:31 Klor-Con 10 PO 10 meq BID [facility] Administration Senna/Docusate Sodium 2 tab 07/23/19 09:00 07/23/19 20:31 Senokot S PO 2 tab BID [facility] Administration Sertraline HCl 100 mg 07/23/19 09:00 07/23/19 13:41 Zoloft PO Not Given DAILY [facility] Simvastatin 20 mg 07/23/19 21:00 07/23/19 20:32 Zocor PO 20 mg HS [facility] Administration - Exam General Appearance: NAD, awake alert Heart: RRR, no murmur, no gallops, no rubs, normal peripheral pulses Respiratory: CTAB, no wheezes, no rales, no ronchi Gastrointestinal: soft, non-tender, normal bowel sounds Psychiatric: A&O x 3 Hosp A/P - Plan Impression: Nausea, mild HTN, chronic DMII HLD Paroxysmal Afib, chronic, rate controlled Plan: Promethazine prn Decrease Metoprolol dose this AM Continue to monitor Blood sugars, Lantus 15u this am Continue ASA and IVF Continue PT Discussed Incentive Spirometry and bowel regimen prn
[2019-07-24] MEDS ORDERED: Insulin Glargine 30 UNITS in Pre-Filled Syringe 1 EACH SC SCH (09:00)
[2019-07-24] MEDS ORDERED: Insulin Glargine 15 UNITS in Pre-Filled Syringe 1 EACH SC SCH (09:00)
[2019-07-24] MEDS: Multivitamin W/ Minerals 1 TAB PO SCH (09:18)
[2019-07-24] MEDS: Stress 600 With Zinc 1 TAB PO SCH (09:19)
[2019-07-24] MEDS: Ferrous Gluconate 324 MG TAB PO SCH ×2 (09:19→21:50)
[2019-07-24] MEDS: Aspirin 81 mg Enteric Coated Tablet PO SCH ×2 (09:19→21:49)
[2019-07-24] MEDS: Gabapentin 300 MG CAP PO SCH ×2 (09:19→21:50)
[2019-07-24] MEDS: Magnesium Oxide 400 MG TAB PO SCH (09:19)
[2019-07-24] MEDS: Loratadine 10 MG TAB PO SCH (09:19)
[2019-07-24] MEDS: Potassium Chloride 10 MEQ TAB PO SCH ×2 (09:20→21:51)
[2019-07-24] MEDS: Senokot S 8.6-50 MG TAB PO SCH ×2 (09:20→21:51)
[2019-07-24] MEDS ORDERED: FLU VACC TS2019-20(65YR UP)/PF 180 MCG/0.5 ML SYRINGE IM ONE (12:15)
[2019-07-24] MEDS ORDERED: Sodium Chloride 0.9% 250 ML IV SCH (12:45)
[2019-07-24] MEDS: HumaLOG 300 UNITS/3 ML VIAL SC PRN ×2 (12:54→21:47)
[2019-07-24] MEDS: Insulin Glargine 15 UNITS in Pre-Filled Syringe 1 EACH SC SCH (21:45)
[2019-07-24] MEDS: Simvastatin 20 MG TAB PO SCH (21:49)
[2019-07-25] MEDS: Furosemide 40 MG TAB PO SCH ×2 (05:32→14:29)
[2019-07-25] MEDS: Lisinopril 2.5 MG TAB PO SCH ×2 (05:32→20:27)
[2019-07-25] MEDS: Ketorolac Tromethamine 30 MG/ML VIAL IVP SCH ×2 (05:34→14:58)
[2019-07-25] MEDS ORDERED: Sodium Chloride 0.9% 500 ML IV SCH (05:45)
[2019-07-25 06:06] LABS: Hemoglobin 9.2 g/dL (14.0-18.0); Mean Corpuscular HGB CONC 33.8 g/dL (32.0-36.0); Mean Corpuscular Hemoglobin 32.6 pg (27.0-31.0); Mean Corpuscular Volume 96.4 fL (78.0-98.0); Mean Platelet Volume 8.9 fL (7.4-10.4); Platelet Count 100 thou/uL (130-400); RBC Distribution Width 13.3 % (11.5-14.5); Red Blood Cell (RBC) Count 2.82 mill/uL (4.70-6.10); White Blood Cell (WBC) Count 7.4 thou/uL (4.8-10.8)
[2019-07-25] MEDS ORDERED: Insulin Glargine 30 UNITS in Pre-Filled Syringe 1 EACH SC SCH (09:00)
[2019-07-25] MEDS: Potassium Chloride 10 MEQ TAB PO SCH ×2 (09:01→20:26)
[2019-07-25] MEDS: Senokot S 8.6-50 MG TAB PO SCH ×2 (09:01→20:27)
[2019-07-25] MEDS: Ferrous Gluconate 324 MG TAB PO SCH ×2 (09:02→20:25)
[2019-07-25] MEDS: Gabapentin 300 MG CAP PO SCH ×2 (09:02→20:25)
[2019-07-25] MEDS: Loratadine 10 MG TAB PO SCH (09:02)
[2019-07-25] MEDS: Aspirin 81 mg Enteric Coated Tablet PO SCH ×2 (09:02→20:25)
[2019-07-25] MEDS: Multivitamin W/ Minerals 1 TAB PO SCH (09:02)
[2019-07-25] MEDS: Magnesium Oxide 400 MG TAB PO SCH (09:02)
[2019-07-25] MEDS: Sodium Chloride 0.9% 1,000 ML IV SCH (09:12)
[2019-07-25] MEDS: Stress 600 With Zinc 1 TAB PO SCH (10:59)
[2019-07-25] MEDS: HumaLOG 300 UNITS/3 ML VIAL SC PRN ×3 (12:36→21:00)
[2019-07-25] MEDS ORDERED: Furosemide 40 MG/4 ML VIAL SLOW IVP SCH (16:30)
--- NOTE | 2019-07-25 18:58 | PDOC.HOSPP ---
- Subjective Encounter Date: 07/25/19 Encounter Time: 15:00 Subjective: Patient seen and examined for med mngt. Pain controlled. Block dced. No CP/SOB. Had BM. No other complaints. No overnight events - Objective Vital Signs & Weight: Vital Signs (12 hours) Temp Pulse Resp BP BP Pulse Ox 07/25/19 15:21 98.5 F 84 18 120/65 94 L 07/25/19 10:58 98.8 F 94 18 98/61 93 L 07/25/19 07:43 99.0 F 85 18 93/50 L 95 Weight Admit Weight 337 lb Weight 337 lb I&O: 07/24/19 07/25/19 07/26/19 06:59 06:59 06:59 Intake Total 914 355 0949 Output Total 150 750 Balance 215 085 6164 Result Diagrams: 07/25/19 05:53 Additional Labs: Accuchecks 07/25/19 07/25/19 07/25/19 15:26 10:58 05:43 POC Glucose 250 H 174 H 150 H 07/25/19 07/24/19 02:19 19:35 POC Glucose 181 H 252 H Hospitalist ROS - Review of Systems Respiratory: denies: cough, dry, shortness of breath, hemoptysis, SOB with excertion, pleuritic pain, sputum, wheezing, other Cardiovascular: denies: chest pain, palpitations, orthopnea, paroxysmal noc. dyspnea, edema, light headedness, other - Medication Medications: Active Medications Generic Name Dose Route Start Last Admin Trade Name Freq PRN Reason Stop Dose Admin Acetaminophen 650 mg 07/23/19 07:28 07/24/19 21:59 Tylenol PO 650 mg Q6H PRN Administration FEVER/PAIN (1-3) Hydrocodone Bitart/Acetaminophen 2 tab 07/23/19 07:28 07/24/19 03:28 [place] 10/325 PO 2 tab Q4H PRN Administration PAIN (4-6) Aspirin 81 mg 07/23/19 09:00 07/25/19 09:02 Ecotrin PO 81 mg BID [facility] Administration Cholecalciferol 5,000 units 07/23/19 21:00 07/24/19 21:50 Vitamin D3 PO 5,000 units HS [facility] Administration Fentanyl 50 mcg 07/23/19 07:28 02/06/20 12:14 Sublimaze IV 50 mcg Q1H PRN Administration BREAKTHROUGH PAIN Ferrous Gluconate 324 mg 07/24/19 09:00 07/25/19 09:02 Fergon PO 324 mg BID [facility] Administration Gabapentin 300 mg 07/23/19 09:00 07/25/19 09:02 Neurontin PO 300 mg BID [facility] Administration Insulin Glargine 15 units/ 0.15 mls @ 0 mls/hr 07/23/19 21:00 07/24/19 21:45 Miscellaneous Medication SC 0.15 mls HS [facility] Administration Insulin Glargine 30 units/ 0.3 mls @ 0 mls/hr 07/25/19 09:00 07/25/19 09:01 Miscellaneous Medication SC 0.3 mls QAM [facility] Administration Insulin Human Lispro 0 units 07/23/19 14:22 07/25/19 17:16 Humalog SC 4 unit .MODERATE SLIDING SC PRN Administration Moderate Correctional Scale Insulin Human Lispro 0 units 07/24/19 08:39 07/24/19 21:47 Humalog SC 3 unit .BEDTIME SLIDING SC PRN Administration Bedtime Correctional Scale Iron/Minerals/Multivitamins 1 tab 07/24/19 09:00 07/25/19 09:02 Theragran M PO 1 tab DAILY [facility] Administration Lisinopril 2.5 mg 07/23/19 21:00 07/25/19 05:32 Zestril PO Not Given HS [facility] Loratadine 10 mg 07/23/19 09:00 07/25/19 09:02 Claritin PO 10 mg DAILY [facility] Administration Magnesium Oxide 400 mg 07/23/19 09:00 07/25/19 09:02 Magnesium Oxide PO 400 mg DAILY [facility] Administration Multivitamins/Zinc 1 tab 07/23/19 09:00 07/25/19 10:59 Stress 600 With Zinc PO Not Given DAILY [facility] Pantoprazole Sodium 40 mg 07/23/19 09:00 07/25/19 09:02 Protonix PO 40 mg DAILY [facility] Administration Potassium Chloride 10 meq 07/23/19 09:00 07/25/19 09:01 Klor-Con 10 PO 10 meq BID [facility] Administration Senna/Docusate Sodium 2 tab 07/23/19 09:00 07/25/19 09:01 Senokot S PO 2 tab BID [facility] Administration Sertraline HCl 100 mg 07/23/19 09:00 07/25/19 09:01 Zoloft PO 100 mg DAILY [facility] Administration Simvastatin 20 mg 07/23/19 21:00 07/24/19 21:49 Zocor PO 20 mg HS [facility] Administration Sodium Chloride 10 ml 07/23/19 06:35 07/25/19 14:59 Flush - Normal Saline IVF 10 ml PRN PRN Administration Saline Flush - Exam General Appearance: NAD Heart: RRR, no rubs Respiratory: no wheezes, no ronchi Gastrointestinal: non-distended, normal bowel sounds Extremities: 2+ LE edema Neurological: no new deficit Psychiatric: A&O x 3 Hosp A/P - Plan DVT proph w/SCDs HTN DM2 HLD Paroxysmal Afib, chronic Morbid obesity BMI 46.3 Plan: Resume Lasix 80 mg BID One dose of Lasix IV 40 mg x 1 Reduce Metoprolol to 12.5 mg BID Cont Lantus 15 units BID with sliding scale Continue ASA Continue PT/OT Cont other meds as above
[2019-07-25] MEDS: HYDROcodone/Acetaminophen 10/325 mg Tablet PO PRN (20:22)
[2019-07-25] MEDS: Simvastatin 20 MG TAB PO SCH (20:25)
[2019-07-25] MEDS: Insulin Glargine 15 UNITS in Pre-Filled Syringe 1 EACH SC SCH (20:59)
[2019-07-26 05:48] LABS: Hemoglobin 9.3 g/dL (14.0-18.0); Mean Corpuscular HGB CONC 33.1 g/dL (32.0-36.0); Mean Corpuscular Hemoglobin 32.3 pg (27.0-31.0); Mean Corpuscular Volume 97.5 fL (78.0-98.0); Mean Platelet Volume 8.6 fL (7.4-10.4); Platelet Count 92 thou/uL (130-400); RBC Distribution Width 13.4 % (11.5-14.5); Red Blood Cell (RBC) Count 2.87 mill/uL (4.70-6.10); White Blood Cell (WBC) Count 6.6 thou/uL (4.8-10.8)
[2019-07-26 06:10] LABS: Anion Gap 10 mmol/L (10-20); BUN (Urea Nitrogen) 46 mg/dL (8.4-25.7); Calc. Creatinine Clearance 62 mL/min (70-130); Calcium 8.4 mg/dL (7.8-10.44); Carbon Dioxide 30 mmol/L (23-31); Chloride 105 mmol/L (98-107); Estimated GFR-MDRD 27; Glucose 102 mg/dL (80-115); Magnesium 2.6 mg/dL (1.6-2.6); Potassium 4.6 mmol/L (3.5-5.1); Sodium 140 mmol/L (136-145)
[2019-07-26] MEDS ORDERED: Albumin 25% 25 GM/100 ML BOT IVPB SCH (08:00)
[2019-07-26 08:14] LABS: ALT (SGPT) Less than 7 U/L (8-55); AST (SGOT) 17 U/L (5-34); Albumin 3.2 g/dL (3.4-4.8); Alkaline Phosphatase 69 U/L (40-110); Bilirubin, Direct 0.5 mg/dL (0.1-0.3); Bilirubin, Total 0.8 mg/dL (0.2-1.2); Protein, Total 5.9 g/dL (5.8-8.1)
[2019-07-26] MEDS ORDERED: Furosemide 80 MG TAB PO SCH (09:00)
--- NOTE | 2019-07-26 09:13 | RAD ---
PORTABLE CHEST: HISTORY: Shortness of breath. COMPARISON: 08/22/2018 FINDINGS: Heart size is enlarged. There are chronic appearing lung changes. No focal infiltrates or overt failu re. Postop changes of the cervical spine are noted. IMPRESSION: Cardiomegaly with chronic lung change. POS: [facility]
[2019-07-26] MEDS: Gabapentin 300 MG CAP PO SCH ×2 (09:36→22:24)
[2019-07-26] MEDS: Ferrous Gluconate 324 MG TAB PO SCH ×2 (09:36→22:24)
[2019-07-26] MEDS: Magnesium Oxide 400 MG TAB PO SCH (09:36)
[2019-07-26] MEDS: Loratadine 10 MG TAB PO SCH (09:36)
[2019-07-26] MEDS: Aspirin 81 mg Enteric Coated Tablet PO SCH ×2 (09:36→22:25)
[2019-07-26] MEDS: Senokot S 8.6-50 MG TAB PO SCH ×2 (09:36→22:33)
[2019-07-26] MEDS: Multivitamin W/ Minerals 1 TAB PO SCH (09:38)
[2019-07-26] MEDS: Insulin Glargine 20 UNITS in Pre-Filled Syringe 1 EACH SC SCH (09:38)
[2019-07-26] MEDS: Stress 600 With Zinc 1 TAB PO SCH (09:39)
[2019-07-26] MEDS: HYDROcodone/Acetaminophen 10/325 mg Tablet PO PRN ×2 (10:40→22:25)
[2019-07-26] MEDS: HumaLOG 300 UNITS/3 ML VIAL SC PRN ×2 (13:19→18:36)
[2019-07-26] MEDS: Albumin 25% 25 GM/100 ML BOT IVPB SCH (18:22)
--- NOTE | 2019-07-26 22:17 | PDOC.HOSPP ---
- Subjective Encounter Date: 07/26/19 Encounter Time: 12:30 Subjective: Patient seen and examined for med mngt. Pain controlled. Edema in LE. No CP/ SOB. No new complaints. No overnight events - Objective Vital Signs & Weight: Vital Signs (12 hours) Temp Pulse Resp BP BP Pulse Ox 07/26/19 19:23 99 F 78 16 135/83 99 07/26/19 15:30 98.5 F 96 18 142/69 H 94 L 07/26/19 11:12 98 F 88 16 120/76 98 Weight Admit Weight 337 lb Weight 337 lb I&O: 07/25/19 07/26/19 07/27/19 06:59 06:59 06:59 Intake Total 650 3590 Output Total 1200 Balance 650 2390 Result Diagrams: 07/26/19 05:36 07/26/19 05:36 Additional Labs: Accuchecks 07/26/19 07/26/19 07/26/19 19:34 15:32 11:14 POC Glucose 221 H 221 H 172 H 07/26/19 06:04 POC Glucose 108 Hospitalist ROS - Review of Systems Respiratory: denies: cough, dry, shortness of breath, hemoptysis, SOB with excertion, pleuritic pain, sputum, wheezing, other Cardiovascular: reports: edema. denies: chest pain, palpitations, orthopnea, paroxysmal noc. dyspnea, light headedness, other - Medication Medications: Active Medications Generic Name Dose Route Start Last Admin Trade Name Freq PRN Reason Stop Dose Admin Acetaminophen 650 mg 07/23/19 07:28 07/24/19 21:59 Tylenol PO 650 mg Q6H PRN Administration FEVER/PAIN (1-3) Hydrocodone Bitart/Acetaminophen 2 tab 07/23/19 07:28 07/26/19 10:40 [place] 10/325 PO 2 tab Q4H PRN Administration PAIN (4-6) Albumin Human 25 gm 07/26/19 18:00 07/26/19 18:22 Albumin 25% IVPB 07/27/19 06:01 25 gm Q6HR [facility]IN[facility]O Administration Aspirin 81 mg 07/23/19 09:00 07/26/19 09:36 Ecotrin PO 81 mg BID [place]O Administration Cholecalciferol 5,000 units 07/23/19 21:00 07/25/19 20:28 Vitamin D3 PO 5,000 units HS [facility]O Administration Fentanyl 50 mcg 07/23/19 07:28 07/23/19 12:14 Sublimaze IV 50 mcg Q1H PRN Administration BREAKTHROUGH PAIN Ferrous Gluconate 324 mg 07/24/19 09:00 07/26/19 09:36 Fergon PO 324 mg BID CH[facility]INCITO Administration Gabapentin 300 mg 07/23/19 09:00 07/26/19 09:36 Neurontin PO 300 mg BID [facility]IN[facility]O Administration Insulin Glargine 15 units/ 0.15 mls @ 0 mls/hr 07/23/19 21:00 07/25/19 20:59 Miscellaneous Medication SC 0.15 mls HS [facility]INCITO Administration Insulin Glargine 20 units/ 0.2 mls @ 0 mls/hr 07/26/19 09:00 07/26/19 09:38 Miscellaneous Medication SC 0.2 mls QAM [facility]INCITO Administration Insulin Human Lispro 0 units 07/23/19 14:22 07/26/19 18:36 Humalog SC 4 unit .MODERATE SLIDING SC PRN Administration Moderate Correctional Scale Insulin Human Lispro 0 units 07/24/19 08:39 07/25/19 21:00 Humalog SC 2 unit .BEDTIME SLIDING SC PRN Administration Bedtime Correctional Scale Iron/Minerals/Multivitamins 1 tab 07/24/19 09:00 07/26/19 09:38 Theragran M PO 1 tab DAILY [facility]IN[facility]O Administration Loratadine 10 mg 07/23/19 09:00 07/26/19 09:36 Claritin PO 10 mg DAILY [facility]IN[facility]O Administration Metoprolol Succinate 12.5 mg 07/25/19 21:00 07/26/19 09:37 Toprol Xl PO 12.5 mg BID CH[facility]IN[facility]O Administration Multivitamins/Zinc 1 tab 07/23/19 09:00 07/26/19 09:39 Stress 600 With Zinc PO Not Given DAILY [facility]IN[facility]O Pantoprazole Sodium 40 mg 07/23/19 09:00 07/26/19 09:38 Protonix PO 40 mg DAILY [facility]IN[facility]O Administration Senna/Docusate Sodium 2 tab 07/23/19 09:00 07/26/19 09:36 Senokot S PO 2 tab BID [facility]O Administration Sertraline HCl 100 mg 07/23/19 09:00 07/26/19 09:39 Zoloft PO 100 mg DAILY [facility]O Administration Simvastatin 20 mg 07/23/19 21:00 07/25/19 20:25 Zocor PO 20 mg HS [facility]IN[facility]O Administration Sodium Chloride 10 ml 07/23/19 06:35 07/25/19 14:59 Flush - Normal Saline IVF 10 ml PRN PRN Administration Saline Flush - Exam General Appearance: NAD Heart: RRR, no gallops Respiratory: no wheezes, no rales, no ronchi Gastrointestinal: non-tender, non-distended, normal bowel sounds Extremities: no clubbing, 2+ LE edema Hosp A/P - Plan PT/OT, DVT proph w/SCDs NITIN on CKD 3 - hemodynamically mediated HTN DM2 HLD Paroxysmal Afib, chronic Morbid obesity BMI 46.3 Plan: Hold Lasix/ACEI due to NITIN Start IV Albumin Nephrology consult Cont Metoprolol to 12.5 mg BID Change Lantus to 20 QAM and 15 units HS Cont sliding scale Continue ASA Resume anticoag when ok with primary service Cont other meds as above
[2019-07-26] MEDS: Simvastatin 20 MG TAB PO SCH (22:24)
[2019-07-26] MEDS: Insulin Glargine 15 UNITS in Pre-Filled Syringe 1 EACH SC SCH (22:26)
[2019-07-27] MEDS: Albumin 25% 25 GM/100 ML BOT IVPB SCH ×2 (00:02→06:23)
[2019-07-27 05:16] LABS: #Eosinphils 0.1 thou/uL (0.0-0.7); #Monocytes 0.4 thou/uL (0.11-0.59); #Neutrophils 3.7 thou/uL (1.40-6.50); %Basophils 0.4 % (0.0-1.0); %Eosinophils 2.5 % (0.0-10.0); %Lymphocytes 18.7 % (21.0-51.0); %Monocytes 8.2 % (0.0-10.0); %Neutrophils 70.2 % (42.0-75.0); Hemoglobin 8.8 g/dL (14.0-18.0); Mean Corpuscular HGB CONC 33.1 g/dL (32.0-36.0); Mean Corpuscular Hemoglobin 31.9 pg (27.0-31.0); Mean Corpuscular Volume 96.3 fL (78.0-98.0); Mean Platelet Volume 9.2 fL (7.4-10.4); Platelet Count 104 thou/uL (130-400); RBC Distribution Width 13.3 % (11.5-14.5); Red Blood Cell (RBC) Count 2.77 mill/uL (4.70-6.10); White Blood Cell (WBC) Count 5.2 thou/uL (4.8-10.8)
[2019-07-27 05:36] LABS: ALT (SGPT) Less than 7 U/L (8-55); AST (SGOT) 15 U/L (5-34); Albumin 3.6 g/dL (3.4-4.8); Alkaline Phosphatase 66 U/L (40-110); Anion Gap 14 mmol/L (10-20); BUN (Urea Nitrogen) 43 mg/dL (8.4-25.7); Bilirubin, Total 0.9 mg/dL (0.2-1.2); Calc. Creatinine Clearance 80 mL/min (70-130); Calcium 8.7 mg/dL (7.8-10.44); Carbon Dioxide 24 mmol/L (23-31); Chloride 105 mmol/L (98-107); Estimated GFR-MDRD 36; Globulin 2.6 g/dL (2.4-3.5); Glucose 124 mg/dL (80-115); Protein, Total 6.2 g/dL (5.8-8.1); Sodium 139 mmol/L (136-145)
[2019-07-27] MEDS: HYDROcodone/Acetaminophen 10/325 mg Tablet PO PRN ×2 (09:13→14:51)
[2019-07-27] MEDS: Stress 600 With Zinc 1 TAB PO SCH (09:18)
[2019-07-27] MEDS: Multivitamin W/ Minerals 1 TAB PO SCH (09:18)
[2019-07-27] MEDS: Ferrous Gluconate 324 MG TAB PO SCH ×2 (09:19→20:10)
[2019-07-27] MEDS: Aspirin 81 mg Enteric Coated Tablet PO SCH ×2 (09:19→20:10)
[2019-07-27] MEDS: Loratadine 10 MG TAB PO SCH (09:19)
[2019-07-27] MEDS: Gabapentin 300 MG CAP PO SCH ×2 (09:19→20:10)
[2019-07-27] MEDS: Insulin Glargine 20 UNITS in Pre-Filled Syringe 1 EACH SC SCH (09:21)
[2019-07-27] MEDS: Senokot S 8.6-50 MG TAB PO SCH ×2 (09:24→20:11)
--- NOTE | 2019-07-27 10:34 | CON ---
DATE OF CONSULTATION: 07/26/2019 CONSULTING PHYSICIAN: Dr. Perry. REASON FOR CONSULTATION: Acute kidney injury. REASON FOR ADMISSION: Leg pain. HISTORY OF PRESENT ILLNESS: A 68-year-old male with history of type 2 diabetes, obesity, CHF, and atrial fibrillation, came to the hospital with above complaints and was found to have acute kidney injury. Nephrology was consulted. No fever or chills. He had surgery during this admission and was on pain medicine including Toradol and ABBEY inhibitors. He also got a dose of Lasix. No fever or chills. No chest pain or palpitations. He has chronic edema, which is not getting better. PAST MEDICAL HISTORY: Positive for type 2 diabetes, hypertension, colon cancer, obesity, CHF, atrial fibrillation. PAST SURGICAL HISTORY: Nerve stimulators, C-spine surgery, left knee replacement, colon resection. HOME MEDICATIONS: Reviewed. ALLERGIES: CYCLOBENZAPRINE, MORPHINE. SOCIAL HISTORY: No smoking, alcohol, or illicit drug abuse. FAMILY HISTORY: No history of kidney disease. REVIEW OF SYSTEMS: CONSTITUTIONAL: Negative for weight loss or gain, ability to conduct usual activities. SKIN: Negative for rash, itching. EYES: Negative for double vision, pain. ENT/MOUTH: Negative for nose bleeding, neck stiffness, pain, tenderness. CARDIOVASCULAR: Negative for palpitations, dyspnea on exertion, orthopnea. RESPIRATORY: Negative for shortness of breath, wheezing, cough, hemoptysis, fever or night sweats. GASTROINTESTINAL: Negative for poor appetite, abdominal pain, heartburn, nausea, vomiting, constipation, or diarrhea. GENITOURINARY: Negative for urgency, frequency, dysuria, nocturia. MUSCULOSKELETAL: Negative for pain, swelling. NEUROLOGIC/PSYCHIATRIC: Negative for anxiety, depression. ALLERGY/IMMUNOLOGIC: Negative for skin rash, bleeding tendency. PHYSICAL EXAMINATION: GENERAL: This is a morbidly obese male, in no apparent distress. VITAL SIGNS: Temperature 98.0, pulse 88, respiratory rate 16, blood pressure 120/76. HEENT: Atraumatic, normocephalic. Oral mucosa is moist. NECK: Supple. CV: S1, S2. Regular rate and rhythm. RESPIRATORY: Clear. MUSCULOSKELETAL: 1 to 2+ edema. DERMATOLOGIC: No skin rash. NEUROLOGIC: Alert, awake, and oriented x3. PSYCHIATRIC: Normal mood and affect. LABORATORY DATA: Hemoglobin is 9.3. Potassium 4.6, BUN is 46, and creatinine is 2.43. ASSESSMENT AND PLAN: 1. Acute kidney injury on chronic kidney disease stage 3, most likely secondary to volume depletion, hemodynamic with combination of medications. Agree with holding the medicine. Agree with holding Lasix, lisinopril, and NSAIDs including Toradol, not able to have hydration at this point due to his chronic edema. Encourage p.o. intake and we will follow. 2. History of hypertension. 3. Obesity. 4. Chronic anemia, on iron supplement. 5. will stop potassium supplements. 6. Also will stop magnesium supplements. 7. Mild electrolytes and renal function. Agree with albumin for now, as not able to hydrate and avoid nephrotoxins. Hold nephrotoxins. Thank you for the consult. Plan discussed with Dr. Perry. We will follow. Job ID: [id number]
--- NOTE | 2019-07-27 11:38 | PRG ---
DATE OF SERVICE: 07/27/2019 SUBJECTIVE: This is a 68-year-old gentleman, being seen for acute kidney injury. The patient denies any nausea, vomiting, or chest pain. OBJECTIVE: GENERAL: The patient is awake and alert. VITAL SIGNS: Afebrile, pulse 75, breathing 16, blood pressure was 114/68. GENERAL APPEARANCE AND MENTAL STATUS: Fair. HEAD/NECK: Normocephalic. Atraumatic. EYES: EOMI. No deformity. EARS: Clear. No ulcers. NOSE: Intact. No lesions. MOUTH: Clear. No discharge. THROAT: Clear. No exudate. LUNGS: Clear. No crackles. CARDIAC: S1, S2. No rub. ABDOMEN: Benign. Bowel sounds positive. GENITALIA/RECTUM: Greenberg absent. BACK/EXTREMITIES: Edema 0+. NEUROLOGICAL: Alert and motor intact. SKIN: LYMPHATICS: LABORATORY DATA: Show creatinine is 1.8. ASSESSMENT AND PLAN: 1. Acute kidney injury with chronic kidney disease, stage 3, stable. 2. Hypertension, stable. 3. Anemia, stable. No indication for dialysis. Job ID: [id number]
[2019-07-27] MEDS: HumaLOG 300 UNITS/3 ML VIAL SC PRN (11:48)
[2019-07-27] MEDS: Insulin Glargine 15 UNITS in Pre-Filled Syringe 1 EACH SC SCH (20:11)
[2019-07-27] MEDS: Simvastatin 20 MG TAB PO SCH (20:11)
--- NOTE | 2019-07-27 22:12 | PDOC.HOSPP ---
- Subjective Encounter Date: 07/27/19 Encounter Time: 10:30 Subjective: Patient seen and examined for med mngt. Feeling better. No fever/chills/CP. No new complaints. No overnight events - Objective Vital Signs & Weight: Vital Signs (12 hours) Temp Pulse Resp BP BP Pulse Ox 07/27/19 19:37 98.7 F 86 18 129/67 97 07/27/19 11:24 98.2 F 77 18 134/68 98 Weight Admit Weight 337 lb Weight 337 lb I&O: 07/26/19 07/27/19 07/28/19 06:59 06:59 06:59 Intake Total 3590 680 Output Total 1200 600 Balance 2390 80 Result Diagrams: 07/27/19 04:55 07/27/19 04:55 Additional Labs: Accuchecks 07/27/19 07/27/19 07/27/19 20:48 15:35 11:26 POC Glucose 139 H 136 H 175 H 07/27/19 07/23/19 05:42 07:13 POC Glucose 127 H 82 Hospitalist ROS - Review of Systems Respiratory: denies: cough, dry, shortness of breath, hemoptysis, SOB with excertion, pleuritic pain, sputum, wheezing, other Cardiovascular: reports: edema. denies: chest pain, palpitations, orthopnea, paroxysmal noc. dyspnea, light headedness, other Gastrointestinal: denies: nausea, vomiting, abdominal pain, diarrhea, constipation, melena, hematochezia, other - Medication Medications: Active Medications Generic Name Dose Route Start Last Admin Trade Name Freq PRN Reason Stop Dose Admin Acetaminophen 650 mg 07/23/19 07:28 07/24/19 21:59 Tylenol PO 650 mg Q6H PRN Administration FEVER/PAIN (1-3) Hydrocodone Bitart/Acetaminophen 2 tab 07/23/19 07:28 07/27/19 14:51 [place] 10/325 PO 2 tab Q4H PRN Administration PAIN (4-6) Aspirin 81 mg 07/23/19 09:00 07/27/19 20:10 Ecotrin PO 81 mg BID [facility]O Administration Cholecalciferol 5,000 units 07/23/19 21:00 07/27/19 20:10 Vitamin D3 PO 5,000 units HS [facility]O Administration Fentanyl 50 mcg 07/23/19 07:28 07/23/19 12:14 Sublimaze IV 50 mcg Q1H PRN Administration BREAKTHROUGH PAIN Ferrous Gluconate 324 mg 07/24/19 09:00 07/27/19 20:10 Fergon PO 324 mg BID [facility]O Administration Gabapentin 300 mg 07/23/19 09:00 07/27/19 20:10 Neurontin PO 300 mg BID [facility]O Administration Insulin Glargine 15 units/ 0.15 mls @ 0 mls/hr 07/23/19 21:00 07/27/19 20:11 Miscellaneous Medication SC 0.15 mls HS [facility]O Administration Insulin Glargine 20 units/ 0.2 mls @ 0 mls/hr 07/26/19 09:00 07/27/19 09:21 Miscellaneous Medication SC 0.2 mls QAM [facility]O Administration Insulin Human Lispro 0 units 07/23/19 14:22 07/27/19 11:48 Humalog SC 2 unit .MODERATE SLIDING SC PRN Administration Moderate Correctional Scale Insulin Human Lispro 0 units 07/24/19 08:39 07/25/19 21:00 Humalog SC 2 unit .BEDTIME SLIDING SC PRN Administration Bedtime Correctional Scale Iron/Minerals/Multivitamins 1 tab 07/24/19 09:00 07/27/19 09:18 Theragran M PO 1 tab DAILY [facility] Administration Loratadine 10 mg 07/23/19 09:00 07/27/19 09:19 Claritin PO 10 mg DAILY [facility] Administration Metoprolol Succinate 12.5 mg 07/25/19 21:00 07/27/19 20:11 Toprol Xl PO 12.5 mg BID [facility]O Administration Multivitamins/Zinc 1 tab 07/23/19 09:00 07/27/19 09:18 Stress 600 With Zinc PO 1 tab DAILY [facility] Administration Pantoprazole Sodium 40 mg 07/23/19 09:00 07/27/19 09:19 Protonix PO 40 mg DAILY [facility] Administration Senna/Docusate Sodium 2 tab 07/23/19 09:00 07/27/19 20:11 Senokot S PO Not Given BID [facility]O Sertraline HCl 100 mg 07/23/19 09:00 07/27/19 09:19 Zoloft PO 100 mg DAILY [facility] Administration Simvastatin 20 mg 07/23/19 21:00 07/27/19 20:11 Zocor PO 20 mg HS [facility]IN[facility]O Administration Sodium Chloride 10 ml 07/23/19 06:35 07/25/19 14:59 Flush - Normal Saline IVF 10 ml PRN PRN Administration Saline Flush - Exam General Appearance: NAD Heart: RRR, no gallops Respiratory: no wheezes, no rales Gastrointestinal: non-tender, normal bowel sounds Extremities: 1+ LE edema Hosp A/P - Plan DVT proph w/SCDs NITIN on CKD 3 - hemodynamically mediated HTN DM2 HLD Paroxysmal Afib, chronic Morbid obesity BMI 46.3 Thrombocytopenia Plan: Lasix/ACEI on hold due to NITIN s/p IV Albumin x 4 doses Nephrology consult appreciated Cont Metoprolol 12.5 mg BID Cont Lantus 20 QAM and 15 units HS with sliding scale DVT prophylaxis Resume anticoag when ok with primary service Cont other meds as above BMP in AM
[2019-07-28 05:48] LABS: Anion Gap 12 mmol/L (10-20); BUN (Urea Nitrogen) 37 mg/dL (8.4-25.7); Calc. Creatinine Clearance 100 mL/min (70-130); Calcium 8.6 mg/dL (7.8-10.44); Carbon Dioxide 26 mmol/L (23-31); Chloride 106 mmol/L (98-107); Estimated GFR-MDRD 46; Glucose 83 mg/dL (80-115); Potassium 3.9 mmol/L (3.5-5.1); Sodium 140 mmol/L (136-145)
[2019-07-28] MEDS: HYDROcodone/Acetaminophen 10/325 mg Tablet PO PRN ×2 (06:50→13:47)
[2019-07-28] MEDS: Gabapentin 300 MG CAP PO SCH (08:46)
[2019-07-28] MEDS: Ferrous Gluconate 324 MG TAB PO SCH (08:46)
[2019-07-28] MEDS: Multivitamin W/ Minerals 1 TAB PO SCH (08:46)
[2019-07-28] MEDS: Senokot S 8.6-50 MG TAB PO SCH (08:46)
[2019-07-28] MEDS: Loratadine 10 MG TAB PO SCH (08:47)
[2019-07-28] MEDS: Aspirin 81 mg Enteric Coated Tablet PO SCH (08:47)
[2019-07-28] MEDS: Insulin Glargine 20 UNITS in Pre-Filled Syringe 1 EACH SC SCH (08:48)
[2019-07-28] MEDS: Stress 600 With Zinc 1 TAB PO SCH (09:11)
--- NOTE | 2019-07-28 09:15 | PDOC.HOSPP ---
- Subjective Encounter Date: 07/28/19 Encounter Time: 09:13 Subjective: Patient seen and examined for medical management . No new complaints. No overnight events - Objective Vital Signs & Weight: Vital Signs (12 hours) Temp Pulse Resp BP BP Pulse Ox 07/28/19 07:36 99.4 F 86 18 132/68 93 L 07/28/19 03:35 98.6 F 70 18 120/69 96 07/27/19 23:31 99.0 F 75 16 134/69 98 Weight Admit Weight 337 lb Weight 337 lb I&O: 07/27/19 07/28/19 07/29/19 06:59 06:59 06:59 Intake Total 680 480 Output Total 600 Balance 80 480 Result Diagrams: 07/27/19 04:55 07/28/19 05:01 Additional Labs: Accuchecks 07/28/19 07/27/19 07/27/19 05:25 20:48 15:35 POC Glucose 89 139 H 136 H 07/27/19 07/23/19 11:26 07:13 POC Glucose 175 H 82 Hospitalist ROS - Review of Systems Cardiovascular: denies: chest pain, palpitations, orthopnea, paroxysmal noc. dyspnea, edema, light headedness, other Gastrointestinal: denies: nausea, vomiting, abdominal pain, diarrhea, constipation, melena, hematochezia, other - Medication Medications: Active Medications Generic Name Dose Route Start Last Admin Trade Name Freq PRN Reason Stop Dose Admin Acetaminophen 650 mg 07/23/19 07:28 07/24/19 21:59 Tylenol PO 650 mg Q6H PRN Administration FEVER/PAIN (1-3) Hydrocodone Bitart/Acetaminophen 2 tab 07/23/19 07:28 07/28/19 06:50 [place] 10/325 PO 2 tab Q4H PRN Administration PAIN (4-6) Aspirin 81 mg 07/23/19 09:00 07/28/19 08:47 Ecotrin PO 81 mg BID [facility]O Administration Cholecalciferol 5,000 units 07/23/19 21:00 07/27/19 20:10 Vitamin D3 PO 5,000 units HS [facility]O Administration Fentanyl 50 mcg 07/23/19 07:28 07/23/19 12:14 Sublimaze IV 50 mcg Q1H PRN Administration BREAKTHROUGH PAIN Ferrous Gluconate 324 mg 07/24/19 09:00 07/28/19 08:46 Fergon PO 324 mg BID [facility]O Administration Gabapentin 300 mg 07/23/19 09:00 07/28/19 08:46 Neurontin PO 300 mg BID [facility]O Administration Insulin Glargine 15 units/ 0.15 mls @ 0 mls/hr 07/23/19 21:00 07/27/19 20:11 Miscellaneous Medication SC 0.15 mls HS [facility]O Administration Insulin Glargine 20 units/ 0.2 mls @ 0 mls/hr 07/26/19 09:00 07/28/19 08:48 Miscellaneous Medication SC 0.2 mls QAM [facility]O Administration Insulin Human Lispro 0 units 07/23/19 14:22 07/27/19 11:48 Humalog SC 2 unit .MODERATE SLIDING SC PRN Administration Moderate Correctional Scale Insulin Human Lispro 0 units 07/24/19 08:39 07/25/19 21:00 Humalog SC 2 unit .BEDTIME SLIDING SC PRN Administration Bedtime Correctional Scale Iron/Minerals/Multivitamins 1 tab 07/24/19 09:00 07/28/19 08:46 Theragran M PO 1 tab DAILY [facility] Administration Loratadine 10 mg 07/23/19 09:00 07/28/19 08:47 Claritin PO 10 mg DAILY [facility] Administration Metoprolol Succinate 12.5 mg 07/25/19 21:00 07/28/19 08:47 Toprol Xl PO 12.5 mg BID [facility]O Administration Multivitamins/Zinc 1 tab 07/23/19 09:00 07/28/19 09:11 Stress 600 With Zinc PO Not Given DAILY [facility]O Pantoprazole Sodium 40 mg 07/23/19 09:00 07/28/19 08:46 Protonix PO 40 mg DAILY [facility]O Administration Senna/Docusate Sodium 2 tab 07/23/19 09:00 07/28/19 08:46 Senokot S PO Not Given BID [facility]O Sertraline HCl 100 mg 07/23/19 09:00 07/28/19 08:46 Zoloft PO 100 mg DAILY [facility]IN[facility] Administration Simvastatin 20 mg 07/23/19 21:00 07/27/19 20:11 Zocor PO 20 mg HS [facility]IN[facility]O Administration Sodium Chloride 10 ml 07/23/19 06:35 07/25/19 14:59 Flush - Normal Saline IVF 10 ml PRN PRN Administration Saline Flush - Exam General Appearance: NAD Heart: RRR, no gallops Respiratory: no wheezes, no ronchi Gastrointestinal: non-tender, non-distended, normal bowel sounds Extremities: no cyanosis Neurological: no new deficit Hosp A/P - Plan DVT proph w/SCDs NITIN on CKD 3 - hemodynamically mediated HTN DM2 HLD Paroxysmal Afib, chronic Morbid obesity BMI 46.3 Thrombocytopenia Plan: Renal function improving Lasix/ACEI on hold due to NITIN. Restart in AM. s/p IV Albumin x 4 doses Increase Metoprolol to 25 mg BID Cont Lantus 20 QAM and 15 units HS with sliding scale DVT prophylaxis Resume anticoag when ok with primary service Cont other meds as above
--- NOTE | 2019-07-28 10:16 | PRG ---
DATE OF SERVICE: 07/27/2019 SUBJECTIVE: Burak is a 68-year-old male who is postop day 4 from a revision left total knee arthroplasty. He is doing relatively well. He was able to ambulate 200 feet, postop day 2, which is July 26. This morning today's evaluation, he has ambulated up to 180 feet. He is pending rehabilitation. OBJECTIVE: VITAL SIGNS: Temperature 98.3, pulse 78, respiratory rate 16, O2 saturation 95% on room air, and blood pressure 97/59. GENERAL: He is alert and oriented to person, place, time, situation, responsive, appropriate with examiner. He is neurovascularly intact. Incision is clean. No strike through. LABORATORY DATA: Hemoglobin and hematocrit 8.8 and 26.7. IMPRESSION: 1. A 68-year-old male postop day 4, revision left total knee arthroplasty. 2. Asymptomatic anemia. PLAN: Continue current care. Placement is pending. Continue to follow. Job ID: [id number]
[2019-07-28 11:20] VITALS: BP 110/63; TEMP 98.8
[2019-07-28] MEDS: HumaLOG 300 UNITS/3 ML VIAL SC PRN (13:19)
--- NOTE | 2019-07-28 17:34 | PRG ---
DATE OF SERVICE: 07/28/2019 SUBJECTIVE: This is a 68-year-old gentleman, being seen for acute kidney injury. The patient denies any nausea, vomiting, or chest pain. OBJECTIVE: GENERAL: The patient is awake and alert. VITAL SIGNS: Afebrile, pulse 75, breathing 16, blood pressure 110/63. GENERAL APPEARANCE AND MENTAL STATUS: Fair. HEAD/NECK: Normocephalic. Atraumatic. EYES: EOMI. No deformity. EARS: Clear. No ulcers. NOSE: Intact. No lesions. MOUTH: Clear. No discharge. THROAT: Clear. No exudate. LUNGS: Clear. No crackles. CARDIAC: S1, S2. No rub. ABDOMEN: Benign. Bowel sounds positive. GENITALIA/RECTUM: Greenberg absent. BACK/EXTREMITIES: Edema 0+. NEUROLOGICAL: Alert and motor intact. SKIN: LYMPHATICS: LABORATORY DATA: Reviewed. ASSESSMENT AND PLAN: 1. Stage 3 chronic kidney disease, stable. 2. Acute kidney injury, stable. 3. Hypertension, stable. 4. Anemia, stable. 5. Medication based on GFR, appropriate. 6. The patient will follow up with Dr. Wagner in 1 to 2 weeks. Job ID: [id number]
== END 2019-07-28 15:40 | DRG 467 ==
LOC: SURG A 07-23 06:05 → SJJU 07-23 11:28
PROVIDERS: ADMIT Orthopaedic Surgery; ATTEND Orthopaedic Surgery
PROC: 0SPD0JZ Removal of Synthetic Substitute from Left Knee Joint, Open Approach (ICD-10-PCS; principal; 2019-07-23)
PROC: 0SRD0J9 Replacement of Left Knee Joint with Synthetic Substitute, Cemented, Open Approach (ICD-10-PCS; 2019-07-23)
DX: T84.89XA Other specified complication of internal orthopedic prosthetic devices, implants and grafts, initial encounter (principal); Z68.42 Body mass index [BMI] 45.0-49.9, adult; N17.9 Acute kidney failure, unspecified; M23.92 Unspecified internal derangement of left knee; E78.5 Hyperlipidemia, unspecified; Z98.84 Bariatric surgery status; Z88.8 Allergy status to other drugs, medicaments and biological substances; G47.00 Insomnia, unspecified; M19.91 Primary osteoarthritis, unspecified site; F17.200 Nicotine dependence, unspecified, uncomplicated; F32.9 Major depressive disorder, single episode, unspecified; E66.01 Morbid (severe) obesity due to excess calories; N18.3 Chronic kidney disease, stage 3 (moderate); I12.9 Hypertensive chronic kidney disease with stage 1 through stage 4 chronic kidney disease, or unspecified chronic kidney disease; E11.22 Type 2 diabetes mellitus with diabetic chronic kidney disease; D69.6 Thrombocytopenia, unspecified; I48.0 Paroxysmal atrial fibrillation; R11.0 Nausea
CPT/HCPCS: 36415; 36416; 71045; 80048; 80053; 80076; 83735; 85025; 85027; 87070; 87205; 90471; 90662; C1713; C1776; G0008; J0670; J0690; J1815; J1885; J1940; J2001; J2250; J2405; J2704; J2795; J3010; J3370; J3490; P9047

== ENCOUNTER 2021-11-04 19:13 | Inpatient (IN) | payer MEDICARE, BC ==
[~2021-11-04 19:13] MED LIST changes: +Iopamidol-370 76% 500 ML 1 ML ONE; -Lidocaine 1% PF 5 ML VIAL ONE; -Ondansetron PF 4 MG/2 ML Vial ONE; -PHENYLEPHRINE-NS 100 MCG/ML 10 ML SYRINGE ONE; -PROPOFOL 200 MG/20 ML VIAL ONE; -Rocuronium Bromide 10 MG/ML (10ML VIAL) ONE; -ePHEDrine 50 MG/ML VIAL ONE
[2021-11-04 19:54] LABS: #Lymphocytes 1.1 thou/uL (1.20-3.40); #Monocytes 0.8 thou/uL (0.11-0.59); #Neutrophils 9.3 thou/uL (1.40-6.50); %Basophils 0.2 % (0.0-1.0); %Eosinophils 0.4 % (0.0-10.0); %Lymphocytes 9.6 % (21.0-51.0); %Monocytes 7.1 % (0.0-10.0); %Neutrophils 82.7 % (42.0-75.0); Hemoglobin 10.4 g/dL (14.0-18.0); Mean Corpuscular HGB CONC 31.2 g/dL (32.0-36.0); Mean Corpuscular Volume 92.9 fL (78.0-98.0); Mean Platelet Volume 7.7 fL (7.4-10.4); Platelet Count 187 thou/uL (130-400); Red Blood Cell (RBC) Count 3.58 mill/uL (4.70-6.10); White Blood Cell (WBC) Count 11.2 thou/uL (4.8-10.8)
[2021-11-04 20:16] LABS: ALT (SGPT) 8 U/L (8-55); AST (SGOT) 24 U/L (5-34); Albumin 3.4 g/dL (3.4-4.8); Alkaline Phosphatase 87 U/L (40-110); Anion Gap 15 mmol/L (10-20); BUN (Urea Nitrogen) 28 mg/dL (8.4-25.7); Calc. Creatinine Clearance 0 mL/min (70-130); Calcium 8.8 mg/dL (7.8-10.44); Carbon Dioxide 27 mmol/L (23-31); Chloride 99 mmol/L (98-107); Globulin 3.8 g/dL (2.4-3.5); Glucose 232 mg/dL (83-110); Potassium 3.9 mmol/L (3.5-5.1); Protein, Total 7.2 g/dL (5.8-8.1); Sodium 137 mmol/L (136-145)
[2021-11-04 20:22] LABS: INR-International Normal Ratio 1.6; Prothrombin Time 19.1 sec (12.0-14.7)
[2021-11-04 20:23] LABS: PTT 56.4 sec (22.9-36.1)
[2021-11-04] MEDS ORDERED: Cefepime 2 GM VIAL ONE (20:44)
[2021-11-04] MEDS ORDERED: VANCOMYCIN 2 GRAM/500 ML BAG 2 GM in Premix Bag 1 BAG IVPB SCH (21:30)
[2021-11-04] MEDS ORDERED: Boostrix 0.5 ML (Tdap) VIAL ONE (21:43)
[2021-11-04 23:27] LABS: Lactic Acid 1.2 mmol/L (0.5-2.2)
[2021-11-04 23:56] VITALS: BMI 42.0
[2021-11-05] MEDS ORDERED: Ondansetron PF 4 MG/2 ML Vial IVP PRN (00:30)
[2021-11-05] MEDS ORDERED: Ondansetron ODT 4 MG TAB SL PRN (00:30)
[2021-11-05] MEDS ORDERED: Acetaminophen 325 MG TAB PO PRN (00:30)
[2021-11-05 00:41] LABS: SARS-CoV-2 NAA Rapid Test DETECTED (NotDetected)
[2021-11-05] MEDS ORDERED: Acetaminophen 650 MG Suppository PR PRN (01:18)
[2021-11-05] MEDS ORDERED: Morphine 4 MG/ML VIAL SLOW IVP PRN (01:23)
[2021-11-05 05:07] LABS: #Eosinphils 0.1 thou/uL (0.0-0.7); #Monocytes 0.8 thou/uL (0.11-0.59); #Neutrophils 6.5 thou/uL (1.40-6.50); %Basophils 0.1 % (0.0-1.0); %Lymphocytes 11.4 % (21.0-51.0); %Monocytes 9.7 % (0.0-10.0); %Neutrophils 77.8 % (42.0-75.0); Hemoglobin 9.3 g/dL (14.0-18.0); Mean Corpuscular HGB CONC 32.7 g/dL (32.0-36.0); Mean Corpuscular Hemoglobin 30.6 pg (27.0-31.0); Mean Corpuscular Volume 93.6 fL (78.0-98.0); Mean Platelet Volume 8.2 fL (7.4-10.4); Platelet Count 160 thou/uL (130-400); RBC Distribution Width 14.9 % (11.5-14.5); Red Blood Cell (RBC) Count 3.03 mill/uL (4.70-6.10); White Blood Cell (WBC) Count 8.4 thou/uL (4.8-10.8)
[2021-11-05] MEDS: Piperacillin/Tazobactam 3.375 GM in Sodium Chloride 0.9% 100 ML IVPB SCH ×3 (05:14→22:31)
[2021-11-05 05:19] LABS: Anion Gap 14 mmol/L (10-20); BUN (Urea Nitrogen) 26 mg/dL (8.4-25.7); Calc. Creatinine Clearance 74 mL/min (70-130); Calcium 8.4 mg/dL (7.8-10.44); Carbon Dioxide 27 mmol/L (23-31); Chloride 101 mmol/L (98-107); Glucose 165 mg/dL (83-110); Potassium 3.5 mmol/L (3.5-5.1); Sodium 138 mmol/L (136-145)
[2021-11-05] MEDS ORDERED: Polyethylene Glycol 3350 17 GM Packet PO PRN (08:27)
[2021-11-05] MEDS ORDERED: Dextrose 50% Abboject 50 ML SYRINGE SLOW IVP PRN ×2 (08:28→22:58)
[2021-11-05] MEDS ORDERED: Dextrose 5% in Water 1,000 ML IV PRN ×2 (08:28→22:58)
[2021-11-05] MEDS ORDERED: HumaLOG 300 UNITS/3 ML VIAL SC PRN ×2 (08:28→22:58)
[2021-11-05] MEDS ORDERED: Albuterol 200 PUFF (6.7GM INHALER) INH PRN (08:35)
[2021-11-05] MEDS ORDERED: Cefepime 2 GM in Sodium Chloride 0.9% 100 ML IVPB SCH (09:00)
[2021-11-05] MEDS: HYDROcodone/Acetaminophen 10/325 mg Tablet PO PRN ×2 (09:28→14:13)
[2021-11-05] MEDS: Ascorbic Acid 500 mg Chewable Tablet PO SCH (09:29)
[2021-11-05] MEDS: Cholecalciferol (Vitamin D3) 400 UNITS TAB PO SCH (09:30)
[2021-11-05] MEDS: Lisinopril 5 MG TAB PO SCH ×2 (09:32→21:20)
[2021-11-05] MEDS: Zinc Sulfate 220 MG CAP PO SCH (09:33)
[2021-11-05] MEDS: Insulin Glargine 30 UNITS/0.3 ML VIAL SC SCH ×2 (09:34→21:20)
[2021-11-05] MEDS: Vancomycin 1 GM in Premix Bag 1 BAG IVPB SCH (21:19)
[2021-11-05] MEDS: Cholecalciferol 1,000 UNITS (25 MCG) TAB PO SCH (21:20)
[2021-11-05] MEDS: Atorvastatin Calcium 10 MG TAB PO SCH (21:21)
[2021-11-05] MEDS: Loratadine 10 MG TAB PO SCH (21:22)
[2021-11-06 04:30] LABS: Mean Corpuscular HGB CONC 31.4 g/dL (32.0-36.0); Mean Corpuscular Hemoglobin 29.6 pg (27.0-31.0); Mean Corpuscular Volume 94.5 fL (78.0-98.0); Mean Platelet Volume 8.2 fL (7.4-10.4); Platelet Count 153 thou/uL (130-400); RBC Distribution Width 15.3 % (11.5-14.5); Red Blood Cell (RBC) Count 3.04 mill/uL (4.70-6.10); White Blood Cell (WBC) Count 8.2 thou/uL (4.8-10.8)
[2021-11-06 04:49] LABS: Anion Gap 10 mmol/L (10-20); BUN (Urea Nitrogen) 25 mg/dL (8.4-25.7); Calc. Creatinine Clearance 78 mL/min (70-130); Calcium 8.5 mg/dL (7.8-10.44); Carbon Dioxide 29 mmol/L (23-31); Chloride 99 mmol/L (98-107); Glucose 219 mg/dL (83-110); Potassium 3.4 mmol/L (3.5-5.1); Sodium 135 mmol/L (136-145)
[2021-11-06] MEDS: Piperacillin/Tazobactam 3.375 GM in Sodium Chloride 0.9% 100 ML IVPB SCH ×3 (06:01→23:18)
[2021-11-06] MEDS ORDERED: Potassium Chloride 20 MEQ TAB PO SCH (07:45)
[2021-11-06] MEDS: Ascorbic Acid 500 mg Chewable Tablet PO SCH (08:49)
[2021-11-06] MEDS: Ferrous Sulfate 325 MG TAB PO SCH (08:49)
[2021-11-06] MEDS: Lisinopril 5 MG TAB PO SCH ×2 (08:50→21:21)
[2021-11-06] MEDS: Zinc Sulfate 220 MG CAP PO SCH (08:52)
[2021-11-06] MEDS: Insulin Glargine 30 UNITS/0.3 ML VIAL SC SCH ×2 (08:52→21:21)
[2021-11-06] MEDS: Cholecalciferol (Vitamin D3) 400 UNITS TAB PO SCH (08:53)
[2021-11-06] MEDS: HYDROcodone/Acetaminophen 10/325 mg Tablet PO PRN (09:36)
[2021-11-06 20:32] LABS: Vancomycin, Trough 11.6 ug/mL
[2021-11-06] MEDS: Vancomycin 1 GM in Premix Bag 1 BAG IVPB SCH (21:18)
[2021-11-06] MEDS: Cholecalciferol 1,000 UNITS (25 MCG) TAB PO SCH (21:20)
[2021-11-06] MEDS: Atorvastatin Calcium 10 MG TAB PO SCH (21:21)
[2021-11-06] MEDS: Loratadine 10 MG TAB PO SCH (21:21)
[2021-11-07] MEDS: Piperacillin/Tazobactam 3.375 GM in Sodium Chloride 0.9% 100 ML IVPB SCH ×3 (05:23→22:20)
[2021-11-07] MEDS: Sodium Chloride 0.9% 1,000 ML IV SCH ×2 (10:00→22:21)
[2021-11-07] MEDS: Vancomycin 1 GM in Premix Bag 1 BAG IVPB SCH ×2 (10:00→20:33)
[2021-11-07] MEDS ORDERED: Furosemide 40 MG/4 ML VIAL SLOW IVP SCH (11:45)
[2021-11-07] MEDS: Cholecalciferol (Vitamin D3) 400 UNITS TAB PO SCH (12:27)
[2021-11-07] MEDS: Insulin Glargine 30 UNITS/0.3 ML VIAL SC SCH ×2 (12:27→20:37)
[2021-11-07] MEDS: Ascorbic Acid 500 mg Chewable Tablet PO SCH (12:27)
[2021-11-07] MEDS: Ferrous Sulfate 325 MG TAB PO SCH (12:27)
[2021-11-07] MEDS: Lisinopril 5 MG TAB PO SCH ×2 (12:28→20:36)
[2021-11-07] MEDS: Zinc Sulfate 220 MG CAP PO SCH (12:29)
[2021-11-07] MEDS ORDERED: fentaNYL Citrate/PF 100 MCG/2 ML SYRINGE ONE (13:54)
[2021-11-07] MEDS ORDERED: Famotidine/PF 20 mg/2ml Vial ONE (14:12)
[2021-11-07] MEDS ORDERED: Lidocaine 1% PF 5 ML VIAL ONE (14:22)
[2021-11-07] MEDS ORDERED: Ondansetron PF 4 MG/2 ML Vial ONE (14:22)
[2021-11-07] MEDS ORDERED: PROPOFOL 200 MG/20 ML VIAL ONE (14:22)
[2021-11-07] MEDS ORDERED: HYDROmorphone 2 MG/ML VIAL SLOW IVP PRN (15:03)
[2021-11-07] MEDS ORDERED: Promethazine HCl 25 MG/ML VIAL IVPB PRN (15:03)
[2021-11-07] MEDS ORDERED: Promethazine HCl 25 MG/ML VIAL IM PRN (15:03)
[2021-11-07] MEDS ORDERED: Ondansetron HCl/PF 4 MG/2 ML Vial IVP PRN (15:03)
[2021-11-07] MEDS ORDERED: traMADol HCl 50 MG TAB PO PRN (15:19)
[2021-11-07] MEDS: HYDROcodone/Acetaminophen 10/325 mg Tablet PO PRN (18:00)
[2021-11-07] MEDS: Cholecalciferol 1,000 UNITS (25 MCG) TAB PO SCH (20:34)
[2021-11-07] MEDS: Atorvastatin Calcium 10 MG TAB PO SCH (20:34)
[2021-11-07] MEDS: Loratadine 10 MG TAB PO SCH (20:35)
[2021-11-08] MEDS: Piperacillin/Tazobactam 3.375 GM in Sodium Chloride 0.9% 100 ML IVPB SCH ×3 (05:03→20:36)
[2021-11-08 06:34] LABS: Hemoglobin 8.8 g/dL (14.0-18.0); Mean Corpuscular HGB CONC 31.4 g/dL (32.0-36.0); Mean Corpuscular Volume 95.5 fL (78.0-98.0); Mean Platelet Volume 8.5 fL (7.4-10.4); Platelet Count 168 thou/uL (130-400); RBC Distribution Width 15.1 % (11.5-14.5); Red Blood Cell (RBC) Count 2.92 mill/uL (4.70-6.10); White Blood Cell (WBC) Count 8.8 thou/uL (4.8-10.8)
[2021-11-08 07:02] LABS: Anion Gap 12 mmol/L (10-20); BUN (Urea Nitrogen) 26 mg/dL (8.4-25.7); Calc. Creatinine Clearance 74 mL/min (70-130); Calcium 8.4 mg/dL (7.8-10.44); Carbon Dioxide 28 mmol/L (23-31); Chloride 100 mmol/L (98-107); Glucose 136 mg/dL (83-110); Potassium 3.8 mmol/L (3.5-5.1); Sodium 136 mmol/L (136-145)
[2021-11-08] MEDS: Insulin Glargine 30 UNITS/0.3 ML VIAL SC SCH ×2 (08:36→20:30)
[2021-11-08] MEDS: Zinc Sulfate 220 MG CAP PO SCH (08:37)
[2021-11-08] MEDS: Ascorbic Acid 500 mg Chewable Tablet PO SCH (08:37)
[2021-11-08] MEDS: Ferrous Sulfate 325 MG TAB PO SCH (08:37)
[2021-11-08] MEDS: Lisinopril 5 MG TAB PO SCH ×3 (08:37→21:13)
[2021-11-08] MEDS: Furosemide 40 MG TAB PO SCH ×2 (08:37→12:31)
[2021-11-08] MEDS: Cholecalciferol (Vitamin D3) 400 UNITS TAB PO SCH (08:37)
[2021-11-08] MEDS ORDERED: Vancomycin HCl 500 MG in Premix Bag 1 BAG IVPB SCH (09:15)
[2021-11-08] MEDS: Vancomycin 1 GM in Premix Bag 1 BAG IVPB SCH (09:22)
[2021-11-08] MEDS: Sodium Chloride 0.9% 1,000 ML IV SCH (10:11)
[2021-11-08] MEDS: HYDROcodone/Acetaminophen 10/325 mg Tablet PO PRN (12:34)
[2021-11-08] MEDS: Loratadine 10 MG TAB PO SCH (20:30)
[2021-11-08] MEDS: Cholecalciferol 1,000 UNITS (25 MCG) TAB PO SCH (20:30)
[2021-11-08] MEDS: Atorvastatin Calcium 10 MG TAB PO SCH (20:30)
[2021-11-08 20:43] LABS: Vancomycin, Random 22.1 ug/mL (See Comment)
[2021-11-09] MEDS: HYDROcodone/Acetaminophen 10/325 mg Tablet PO PRN (07:26)
[2021-11-09 08:21] VITALS: BP 98/59; TEMP 98.3
[2021-11-09 08:21] LABS: #Eosinphils 0.2 thou/uL (0.0-0.7); #Lymphocytes 0.9 thou/uL (1.20-3.40); #Monocytes 0.6 thou/uL (0.11-0.59); #Neutrophils 6.7 thou/uL (1.40-6.50); %Basophils 0.1 % (0.0-1.0); %Eosinophils 1.9 % (0.0-10.0); %Lymphocytes 10.6 % (21.0-51.0); %Monocytes 7.3 % (0.0-10.0); %Neutrophils 80.1 % (42.0-75.0); Hemoglobin 9.1 g/dL (14.0-18.0); Mean Corpuscular HGB CONC 31.2 g/dL (32.0-36.0); Mean Corpuscular Hemoglobin 30.1 pg (27.0-31.0); Mean Corpuscular Volume 96.4 fL (78.0-98.0); Mean Platelet Volume 8.1 fL (7.4-10.4); Platelet Count 183 thou/uL (130-400); RBC Distribution Width 15.1 % (11.5-14.5); Red Blood Cell (RBC) Count 3.02 mill/uL (4.70-6.10); White Blood Cell (WBC) Count 8.4 thou/uL (4.8-10.8)
[2021-11-09 08:39] LABS: Vancomycin, Random 19.1 ug/mL (See Comment)
[2021-11-09 08:42] LABS: ALT (SGPT) 16 U/L (8-55); AST (SGOT) 39 U/L (5-34); Albumin 2.7 g/dL (3.4-4.8); Alkaline Phosphatase 102 U/L (40-110); Anion Gap 10 mmol/L (10-20); BUN (Urea Nitrogen) 26 mg/dL (8.4-25.7); Bilirubin, Total 1.4 mg/dL (0.2-1.2); Calc. Creatinine Clearance 70 mL/min (70-130); Calcium 8.3 mg/dL (7.8-10.44); Carbon Dioxide 30 mmol/L (23-31); Chloride 102 mmol/L (98-107); Globulin 3.6 g/dL (2.4-3.5); Glucose 98 mg/dL (83-110); Potassium 3.6 mmol/L (3.5-5.1); Protein, Total 6.3 g/dL (5.8-8.1); Sodium 138 mmol/L (136-145)
[2021-11-09] MEDS: Cholecalciferol (Vitamin D3) 400 UNITS TAB PO SCH (09:00)
[2021-11-09] MEDS: Ascorbic Acid 500 mg Chewable Tablet PO SCH (09:00)
[2021-11-09] MEDS: Furosemide 40 MG TAB PO SCH ×2 (09:00→15:51)
[2021-11-09] MEDS: Ferrous Sulfate 325 MG TAB PO SCH (09:00)
[2021-11-09] MEDS: Zinc Sulfate 220 MG CAP PO SCH (09:00)
[2021-11-09] MEDS: Lisinopril 5 MG TAB PO SCH (09:01)
[2021-11-09] MEDS: Insulin Glargine 30 UNITS/0.3 ML VIAL SC SCH (09:01)
== END 2021-11-09 18:44 | DRG 570 ==
LOC: ERS 19:13 → 2NO 21:56 → T4-A 11-07 14:21
PROVIDERS: ADMIT Student in an Organized Health Care Education/Training Program; ATTEND Internal Medicine
PROC: 8E0ZXY6 Isolation (ICD-10-PCS; 2021-11-04)
PROC: 0JBP0ZZ Excision of Left Lower Leg Subcutaneous Tissue and Fascia, Open Approach (ICD-10-PCS; principal; 2021-11-07)
PROC: 0Y9J0ZZ Drainage of Left Lower Leg, Open Approach (ICD-10-PCS; 2021-11-07)
DX: L03.116 Cellulitis of left lower limb (principal); U07.1 COVID-19; J96.01 Acute respiratory failure with hypoxia; Z68.41 Body mass index [BMI] 40.0-44.9, adult; N17.9 Acute kidney failure, unspecified; I13.0 Hypertensive heart and chronic kidney disease with heart failure and stage 1 through stage 4 chronic kidney disease, or unspecified chronic kidney disease; D62 Acute posthemorrhagic anemia; I50.9 Heart failure, unspecified; F32.A Depression, unspecified; Z96.652 Presence of left artificial knee joint; E66.01 Morbid (severe) obesity due to excess calories; F17.220 Nicotine dependence, chewing tobacco, uncomplicated; E11.22 Type 2 diabetes mellitus with diabetic chronic kidney disease; I48.0 Paroxysmal atrial fibrillation; N18.30 Chronic kidney disease, stage 3 unspecified; K21.9 Gastro-esophageal reflux disease without esophagitis; Z88.5 Allergy status to narcotic agent; Z88.8 Allergy status to other drugs, medicaments and biological substances; Z85.038 Personal history of other malignant neoplasm of large intestine; Z79.01 Long term (current) use of anticoagulants; Z79.4 Long term (current) use of insulin; Z79.899 Other long term (current) drug therapy; Z90.49 Acquired absence of other specified parts of digestive tract; Z98.890 Other specified postprocedural states
CPT/HCPCS: 36415; 36416; 71045; 80048; 80053; 80202; 83605; 85025; 85027; 85610; 85730; 87040; 90471; 90715; 96374; C1713; J0692; J1815; J1940; J2405; J2543; J2704; J3370; J3490; J7050; Q9967; S0028; U0002

== ENCOUNTER 2022-01-13 00:31 | Inpatient (IN) | payer MEDICARE, BC ==
[2022-01-13] MEDS ORDERED: Acetaminophen 325 MG TAB PO PRN (03:01)
[2022-01-13] MEDS ORDERED: Ondansetron PF 4 MG/2 ML Vial IVP PRN (03:01)
[2022-01-13] MEDS ORDERED: Dextrose 50% Abboject 50 ML SYRINGE SLOW IVP PRN (03:03)
[2022-01-13] MEDS ORDERED: HumaLOG 300 UNITS/3 ML VIAL SC PRN (03:03)
[2022-01-13] MEDS ORDERED: Dextrose 5% in Water 1,000 ML IV PRN (03:03)
[2022-01-13 04:27] LABS: #Lymphocytes 0.7 thou/uL (1.20-3.40); #Neutrophils 9.9 thou/uL (1.40-6.50); %Basophils 0.2 % (0.0-1.0); %Eosinophils 0.2 % (0.0-10.0); %Lymphocytes 6.2 % (21.0-51.0); %Monocytes 8.4 % (0.0-10.0); %Neutrophils 84.9 % (42.0-75.0); Hemoglobin 9.3 g/dL (14.0-18.0); Mean Corpuscular HGB CONC 32.2 g/dL (32.0-36.0); Mean Corpuscular Hemoglobin 29.4 pg (27.0-31.0); Mean Corpuscular Volume 91.3 fL (78.0-98.0); Mean Platelet Volume 8.3 fL (7.4-10.4); Platelet Count 172 thou/uL (130-400); RBC Distribution Width 14.8 % (11.5-14.5); Red Blood Cell (RBC) Count 3.16 mill/uL (4.70-6.10); White Blood Cell (WBC) Count 11.6 thou/uL (4.8-10.8)
[2022-01-13 04:59] LABS: Anion Gap 17 mmol/L (10-20); BUN (Urea Nitrogen) 36 mg/dL (8.4-25.7); Calc. Creatinine Clearance 87 mL/min (70-130); Carbon Dioxide 24 mmol/L (23-31); Chloride 97 mmol/L (98-107); Estimated GFR 47; Glucose 180 mg/dL (83-110); Potassium 4.1 mmol/L (3.5-5.1); Sodium 134 mmol/L (136-145)
[2022-01-13] MEDS: HumaLOG 300 UNITS/3 ML VIAL SC PRN (06:21)
[2022-01-13] MEDS ORDERED: Polyethylene Glycol 3350 17 GM Packet PO PRN (08:59)
[2022-01-13] MEDS ORDERED: Albuterol 200 PUFF (6.7GM INHALER) INH PRN (08:59)
[2022-01-13] MEDS ORDERED: Bisacodyl 5 MG TAB PO PRN (08:59)
[2022-01-13] MEDS ORDERED: Heparin 5,000 UNITS/ML VIAL SC SCH (09:00)
[2022-01-13] MEDS: Apixaban 5 MG TAB PO SCH ×2 (09:58→21:20)
[2022-01-13] MEDS: Cholecalciferol 1,000 UNITS (25 MCG) TAB PO SCH (09:58)
[2022-01-13] MEDS: Insulin Glargine 30 UNITS/0.3 ML VIAL SC SCH ×2 (09:58→21:20)
[2022-01-13] MEDS ORDERED: Furosemide 40 MG TAB PO SCH (14:00)
[2022-01-13] MEDS: Furosemide 100 MG/10 ML VIAL SLOW IVP SCH (14:35)
[2022-01-13] MEDS: HYDROcodone/Acetaminophen 5/325 mg Tablet PO PRN ×2 (14:42→22:48)
[2022-01-13] MEDS: Potassium Chloride 20 MEQ TAB PO SCH (18:10)
[2022-01-13] MEDS: Loratadine 10 MG TAB PO SCH (21:20)
[2022-01-13] MEDS: Atorvastatin Calcium 10 MG TAB PO SCH ×2 (21:20→21:21)
[2022-01-13] MEDS: Lisinopril 2.5 MG TAB PO SCH (21:21)
[2022-01-13] MEDS: cefTRIAXone\\ROCEPHIN 1 GM in Sodium Chloride 0.9% 100 ML IVPB SCH (22:48)
[2022-01-14 04:43] LABS: #Lymphocytes 0.7 thou/uL (1.20-3.40); #Monocytes 0.8 thou/uL (0.11-0.59); %Basophils 0.1 % (0.0-1.0); %Eosinophils 0.1 % (0.0-10.0); %Lymphocytes 7.6 % (21.0-51.0); %Monocytes 8.5 % (0.0-10.0); %Neutrophils 83.8 % (42.0-75.0); Hemoglobin 8.9 g/dL (14.0-18.0); Mean Corpuscular HGB CONC 32.8 g/dL (32.0-36.0); Mean Corpuscular Volume 91.6 fL (78.0-98.0); Mean Platelet Volume 8.3 fL (7.4-10.4); Platelet Count 167 thou/uL (130-400); RBC Distribution Width 14.8 % (11.5-14.5); Red Blood Cell (RBC) Count 2.97 mill/uL (4.70-6.10); White Blood Cell (WBC) Count 9.6 thou/uL (4.8-10.8)
[2022-01-14] MEDS: HYDROcodone/Acetaminophen 5/325 mg Tablet PO PRN ×3 (05:00→21:07)
[2022-01-14] MEDS: Furosemide 100 MG/10 ML VIAL SLOW IVP SCH ×2 (05:01→15:53)
[2022-01-14 05:03] LABS: Anion Gap 14 mmol/L (10-20); BUN (Urea Nitrogen) 33 mg/dL (8.4-25.7); Calc. Creatinine Clearance 93 mL/min (70-130); Calcium 8.7 mg/dL (7.8-10.44); Carbon Dioxide 27 mmol/L (23-31); Chloride 97 mmol/L (98-107); Estimated GFR 50; Glucose 156 mg/dL (83-110); Potassium 3.6 mmol/L (3.5-5.1); Sodium 134 mmol/L (136-145)
[2022-01-14] MEDS: Cholecalciferol 1,000 UNITS (25 MCG) TAB PO SCH (08:30)
[2022-01-14] MEDS: Apixaban 5 MG TAB PO SCH ×2 (08:30→21:06)
[2022-01-14] MEDS: Insulin Glargine 30 UNITS/0.3 ML VIAL SC SCH ×2 (08:30→21:06)
[2022-01-14] MEDS: Potassium Chloride 20 MEQ TAB PO SCH ×2 (08:30→15:53)
[2022-01-14] MEDS: Saccharomyces boulardii 250 MG CAP PO SCH (08:31)
[2022-01-14] MEDS ORDERED: Furosemide 40 MG/4 ML VIAL SLOW IVP SCH (09:00)
[2022-01-14] MEDS: Atorvastatin Calcium 10 MG TAB PO SCH (21:07)
[2022-01-14] MEDS: Loratadine 10 MG TAB PO SCH (21:08)
[2022-01-14] MEDS: Lisinopril 2.5 MG TAB PO SCH (21:08)
[2022-01-14] MEDS: cefTRIAXone\\ROCEPHIN 1 GM in Sodium Chloride 0.9% 100 ML IVPB SCH (23:38)
[2022-01-15 04:47] LABS: #Lymphocytes 0.8 thou/uL (1.20-3.40); #Monocytes 0.7 thou/uL (0.11-0.59); %Eosinophils 0.5 % (0.0-10.0); %Lymphocytes 11.1 % (21.0-51.0); %Monocytes 8.9 % (0.0-10.0); %Neutrophils 79.4 % (42.0-75.0); Hemoglobin 8.6 g/dL (14.0-18.0); Mean Corpuscular HGB CONC 32.9 g/dL (32.0-36.0); Mean Corpuscular Hemoglobin 29.9 pg (27.0-31.0); Mean Corpuscular Volume 90.9 fL (78.0-98.0); Mean Platelet Volume 8.7 fL (7.4-10.4); Platelet Count 161 thou/uL (130-400); RBC Distribution Width 14.5 % (11.5-14.5); Red Blood Cell (RBC) Count 2.86 mill/uL (4.70-6.10); White Blood Cell (WBC) Count 7.5 thou/uL (4.8-10.8)
[2022-01-15] MEDS: Furosemide 100 MG/10 ML VIAL SLOW IVP SCH ×2 (05:02→16:22)
[2022-01-15 05:12] LABS: Anion Gap 14 mmol/L (10-20); BUN (Urea Nitrogen) 33 mg/dL (8.4-25.7); Calc. Creatinine Clearance 90 mL/min (70-130); Calcium 8.8 mg/dL (7.8-10.44); Carbon Dioxide 29 mmol/L (23-31); Chloride 96 mmol/L (98-107); Estimated GFR 49; Glucose 114 mg/dL (83-110); Iron 19 ug/dL (65-175); Iron Binding Capacity, Total 191 mcg/dL (261-462); Potassium 3.6 mmol/L (3.5-5.1); Sodium 135 mmol/L (136-145)
[2022-01-15] MEDS: Insulin Glargine 30 UNITS/0.3 ML VIAL SC SCH ×2 (08:40→20:32)
[2022-01-15] MEDS: Potassium Chloride 20 MEQ TAB PO SCH ×2 (08:40→17:37)
[2022-01-15] MEDS: Apixaban 5 MG TAB PO SCH ×2 (08:40→20:42)
[2022-01-15] MEDS: Saccharomyces boulardii 250 MG CAP PO SCH (08:40)
[2022-01-15] MEDS: Cholecalciferol 1,000 UNITS (25 MCG) TAB PO SCH (08:41)
[2022-01-15] MEDS: HYDROcodone/Acetaminophen 5/325 mg Tablet PO PRN ×2 (08:46→23:27)
[2022-01-15] MEDS: Loratadine 10 MG TAB PO SCH ×2 (20:32→20:58)
[2022-01-15] MEDS: Lisinopril 2.5 MG TAB PO SCH (20:32)
[2022-01-15] MEDS: Atorvastatin Calcium 10 MG TAB PO SCH (20:32)
[2022-01-15] MEDS: cefTRIAXone\\ROCEPHIN 1 GM in Sodium Chloride 0.9% 100 ML IVPB SCH (23:28)
[2022-01-16] MEDS: Furosemide 100 MG/10 ML VIAL SLOW IVP SCH ×2 (05:29→15:17)
[2022-01-16] MEDS: Apixaban 5 MG TAB PO SCH ×2 (09:49→20:49)
[2022-01-16] MEDS: Saccharomyces boulardii 250 MG CAP PO SCH (09:49)
[2022-01-16] MEDS: Cholecalciferol 1,000 UNITS (25 MCG) TAB PO SCH (09:49)
[2022-01-16] MEDS: Potassium Chloride 20 MEQ TAB PO SCH ×2 (09:49→16:55)
[2022-01-16] MEDS: Insulin Glargine 30 UNITS/0.3 ML VIAL SC SCH ×2 (09:49→20:49)
[2022-01-16] MEDS: Atorvastatin Calcium 10 MG TAB PO SCH (20:50)
[2022-01-16] MEDS: Loratadine 10 MG TAB PO SCH (20:51)
[2022-01-16] MEDS: HYDROcodone/Acetaminophen 5/325 mg Tablet PO PRN (20:51)
[2022-01-16] MEDS: Lisinopril 2.5 MG TAB PO SCH (20:52)
[2022-01-16] MEDS: cefTRIAXone\\ROCEPHIN 1 GM in Sodium Chloride 0.9% 100 ML IVPB SCH (22:53)
[2022-01-17] MEDS: Furosemide 100 MG/10 ML VIAL SLOW IVP SCH ×3 (06:05→20:55)
[2022-01-17 08:33] LABS: #Eosinphils 0.2 thou/uL (0.0-0.7); #Lymphocytes 1.5 thou/uL (1.20-3.40); #Monocytes 1.1 thou/uL (0.11-0.59); #Neutrophils 5.5 thou/uL (1.40-6.50); %Basophils 0.5 % (0.0-1.0); %Eosinophils 1.9 % (0.0-10.0); %Lymphocytes 18.2 % (21.0-51.0); %Monocytes 13.3 % (0.0-10.0); %Neutrophils 66.1 % (42.0-75.0); Hemoglobin 8.8 g/dL (14.0-18.0); Mean Corpuscular HGB CONC 32.4 g/dL (32.0-36.0); Mean Corpuscular Hemoglobin 29.8 pg (27.0-31.0); Mean Corpuscular Volume 91.9 fL (78.0-98.0); Mean Platelet Volume 8.4 fL (7.4-10.4); Platelet Count 178 thou/uL (130-400); RBC Distribution Width 14.4 % (11.5-14.5); Red Blood Cell (RBC) Count 2.96 mill/uL (4.70-6.10); White Blood Cell (WBC) Count 8.2 thou/uL (4.8-10.8)
[2022-01-17 09:05] LABS: Anion Gap 14 mmol/L (10-20); BUN (Urea Nitrogen) 34 mg/dL (8.4-25.7); Calc. Creatinine Clearance 86 mL/min (70-130); Calcium 8.9 mg/dL (7.8-10.44); Carbon Dioxide 32 mmol/L (23-31); Chloride 96 mmol/L (98-107); Estimated GFR 47; Glucose 71 mg/dL (83-110); Potassium 3.5 mmol/L (3.5-5.1); Sodium 138 mmol/L (136-145)
[2022-01-17] MEDS: Cholecalciferol 1,000 UNITS (25 MCG) TAB PO SCH (09:50)
[2022-01-17] MEDS: Potassium Chloride 20 MEQ TAB PO SCH ×2 (09:50→18:52)
[2022-01-17] MEDS: Insulin Glargine 30 UNITS/0.3 ML VIAL SC SCH ×2 (09:50→20:53)
[2022-01-17] MEDS: Saccharomyces boulardii 250 MG CAP PO SCH (09:51)
[2022-01-17] MEDS: Apixaban 5 MG TAB PO SCH ×2 (09:51→20:52)
[2022-01-17] MEDS: Empagliflozin 10 MG TAB PO SCH (09:57)
[2022-01-17] MEDS: HYDROcodone/Acetaminophen 5/325 mg Tablet PO PRN (15:32)
[2022-01-17] MEDS ORDERED: Piperacillin/Tazobactam 3.375 GM in Sodium Chloride 0.9% 100 ML IVPB SCH ×2 (17:00→21:00)
[2022-01-17] MEDS ORDERED: Piperacillin/Tazobactam 3.375 GM VIAL ONE (18:32)
[2022-01-17] MEDS: Lisinopril 2.5 MG TAB PO SCH (20:53)
[2022-01-17] MEDS: Atorvastatin Calcium 10 MG TAB PO SCH (20:53)
[2022-01-17] MEDS: Loratadine 10 MG TAB PO SCH (20:55)
[2022-01-18] MEDS: Piperacillin/Tazobactam 3.375 GM in Sodium Chloride 0.9% 100 ML IVPB SCH ×3 (01:19→17:02)
[2022-01-18] MEDS: Furosemide 100 MG/10 ML VIAL SLOW IVP SCH ×3 (06:20→22:03)
[2022-01-18] MEDS: HYDROcodone/Acetaminophen 5/325 mg Tablet PO PRN ×2 (06:35)
[2022-01-18] MEDS: Apixaban 5 MG TAB PO SCH ×2 (10:05→22:04)
[2022-01-18] MEDS: Empagliflozin 10 MG TAB PO SCH (10:06)
[2022-01-18] MEDS: Potassium Chloride 20 MEQ TAB PO SCH ×2 (10:07→17:03)
[2022-01-18] MEDS: Saccharomyces boulardii 250 MG CAP PO SCH (10:07)
[2022-01-18] MEDS: Cholecalciferol 1,000 UNITS (25 MCG) TAB PO SCH (10:08)
[2022-01-18] MEDS: Insulin Glargine 30 UNITS/0.3 ML VIAL SC SCH ×2 (10:10→22:07)
[2022-01-18 11:05] VITALS: BMI 41.8
[2022-01-18] MEDS ORDERED: Piperacillin/Tazobactam 3.375 GM VIAL ONE ×3 (16:43→23:36)
[2022-01-18] MEDS: Lisinopril 2.5 MG TAB PO SCH (22:04)
[2022-01-18] MEDS: Loratadine 10 MG TAB PO SCH (22:05)
[2022-01-18] MEDS: Atorvastatin Calcium 10 MG TAB PO SCH (22:05)
[2022-01-19] MEDS: Piperacillin/Tazobactam 3.375 GM in Sodium Chloride 0.9% 100 ML IVPB SCH ×4 (00:03→23:54)
[2022-01-19] MEDS: HYDROcodone/Acetaminophen 5/325 mg Tablet PO PRN ×2 (00:56→21:52)
[2022-01-19 04:45] LABS: Anion Gap 13 mmol/L (10-20); BUN (Urea Nitrogen) 33 mg/dL (8.4-25.7); Calc. Creatinine Clearance 74 mL/min (70-130); Calcium 8.6 mg/dL (7.8-10.44); Carbon Dioxide 30 mmol/L (23-31); Chloride 98 mmol/L (98-107); Estimated GFR 40; Glucose 121 mg/dL (83-110); Potassium 3.9 mmol/L (3.5-5.1); Sodium 137 mmol/L (136-145)
[2022-01-19] MEDS: Furosemide 100 MG/10 ML VIAL SLOW IVP SCH (06:13)
[2022-01-19] MEDS ORDERED: Semaglutide [Ozempic] 2 MG/0.75 ML Pen.Injctr SC SCH (09:00)
[2022-01-19] MEDS: Potassium Chloride 20 MEQ TAB PO SCH ×2 (10:20→19:00)
[2022-01-19] MEDS: Saccharomyces boulardii 250 MG CAP PO SCH (10:20)
[2022-01-19] MEDS: Apixaban 5 MG TAB PO SCH ×2 (10:21→21:53)
[2022-01-19] MEDS: Empagliflozin 10 MG TAB PO SCH (10:21)
[2022-01-19] MEDS ORDERED: Piperacillin/Tazobactam 3.375 GM VIAL ONE (11:01)
[2022-01-19] MEDS: Insulin Glargine 30 UNITS/0.3 ML VIAL SC SCH ×2 (11:15→21:56)
[2022-01-19] MEDS: Cholecalciferol 1,000 UNITS (25 MCG) TAB PO SCH (19:02)
[2022-01-19] MEDS: Loratadine 10 MG TAB PO SCH (21:53)
[2022-01-19] MEDS: Atorvastatin Calcium 10 MG TAB PO SCH (21:53)
[2022-01-20 04:25] LABS: #Eosinphils 0.3 thou/uL (0.0-0.7); #Lymphocytes 1.4 thou/uL (1.20-3.40); #Neutrophils 8.1 thou/uL (1.40-6.50); %Basophils 0.4 % (0.0-1.0); %Lymphocytes 13.2 % (21.0-51.0); %Monocytes 8.9 % (0.0-10.0); %Neutrophils 74.5 % (42.0-75.0); Hemoglobin 8.6 g/dL (14.0-18.0); Mean Corpuscular HGB CONC 31.6 g/dL (32.0-36.0); Mean Corpuscular Volume 91.8 fL (78.0-98.0); Mean Platelet Volume 8.4 fL (7.4-10.4); Platelet Count 209 thou/uL (130-400); RBC Distribution Width 15.2 % (11.5-14.5); Red Blood Cell (RBC) Count 2.97 mill/uL (4.70-6.10); White Blood Cell (WBC) Count 10.8 thou/uL (4.8-10.8)
[2022-01-20 04:52] LABS: Anion Gap 12 mmol/L (10-20); BUN (Urea Nitrogen) 36 mg/dL (8.4-25.7); Calc. Creatinine Clearance 68 mL/min (70-130); Calcium 8.6 mg/dL (7.8-10.44); Carbon Dioxide 31 mmol/L (23-31); Chloride 96 mmol/L (98-107); Estimated GFR 36; Glucose 138 mg/dL (83-110); Potassium 3.9 mmol/L (3.5-5.1); Sodium 135 mmol/L (136-145)
[2022-01-20] MEDS: Piperacillin/Tazobactam 3.375 GM in Sodium Chloride 0.9% 100 ML IVPB SCH ×4 (09:14→23:44)
[2022-01-20] MEDS: Apixaban 5 MG TAB PO SCH ×2 (09:16→21:30)
[2022-01-20] MEDS: Cholecalciferol 1,000 UNITS (25 MCG) TAB PO SCH (09:16)
[2022-01-20] MEDS: Potassium Chloride 20 MEQ TAB PO SCH ×2 (09:16→17:03)
[2022-01-20] MEDS: Saccharomyces boulardii 250 MG CAP PO SCH (09:16)
[2022-01-20] MEDS: Furosemide 40 MG/4 ML VIAL SLOW IVP SCH (09:17)
[2022-01-20] MEDS: Empagliflozin 10 MG TAB PO SCH (09:18)
[2022-01-20] MEDS: Insulin Glargine 30 UNITS/0.3 ML VIAL SC SCH ×2 (09:18→21:30)
[2022-01-20] MEDS ORDERED: Regadenoson 0.4 MG/5 ML SYRINGE ONE (09:42)
[2022-01-20] MEDS: Atorvastatin Calcium 10 MG TAB PO SCH (21:30)
[2022-01-20] MEDS: Loratadine 10 MG TAB PO SCH (21:30)
[2022-01-21] MEDS: HumaLOG 300 UNITS/3 ML VIAL SC PRN ×2 (05:53→12:02)
[2022-01-21] MEDS: Cholecalciferol 1,000 UNITS (25 MCG) TAB PO SCH (09:24)
[2022-01-21] MEDS: Potassium Chloride 20 MEQ TAB PO SCH ×2 (09:24→16:16)
[2022-01-21] MEDS: Apixaban 5 MG TAB PO SCH ×2 (09:24→20:48)
[2022-01-21] MEDS: Furosemide 40 MG/4 ML VIAL SLOW IVP SCH (09:24)
[2022-01-21] MEDS: Empagliflozin 10 MG TAB PO SCH (09:24)
[2022-01-21] MEDS: Saccharomyces boulardii 250 MG CAP PO SCH (09:24)
[2022-01-21] MEDS: Insulin Glargine 30 UNITS/0.3 ML VIAL SC SCH ×2 (09:24→20:49)
[2022-01-21] MEDS: HYDROcodone/Acetaminophen 5/325 mg Tablet PO PRN ×2 (11:47→20:47)
[2022-01-21] MEDS: Piperacillin/Tazobactam 3.375 GM in Sodium Chloride 0.9% 100 ML IVPB SCH ×3 (11:47→23:57)
[2022-01-21] MEDS: Loratadine 10 MG TAB PO SCH (20:48)
[2022-01-21] MEDS: Atorvastatin Calcium 10 MG TAB PO SCH (20:48)
[2022-01-22 04:46] LABS: #Eosinphils 0.2 thou/uL (0.0-0.7); #Lymphocytes 1.3 thou/uL (1.20-3.40); #Monocytes 0.8 thou/uL (0.11-0.59); #Neutrophils 7.7 thou/uL (1.40-6.50); %Basophils 0.1 % (0.0-1.0); %Eosinophils 2.4 % (0.0-10.0); %Lymphocytes 12.9 % (21.0-51.0); %Monocytes 7.5 % (0.0-10.0); %Neutrophils 77.2 % (42.0-75.0); Hemoglobin 8.4 g/dL (14.0-18.0); Mean Corpuscular HGB CONC 31.1 g/dL (32.0-36.0); Mean Corpuscular Hemoglobin 28.7 pg (27.0-31.0); Mean Corpuscular Volume 92.5 fL (78.0-98.0); Mean Platelet Volume 8.4 fL (7.4-10.4); Platelet Count 208 thou/uL (130-400); RBC Distribution Width 15.2 % (11.5-14.5); Red Blood Cell (RBC) Count 2.91 mill/uL (4.70-6.10)
[2022-01-22 05:06] LABS: Anion Gap 14 mmol/L (10-20); BUN (Urea Nitrogen) 32 mg/dL (8.4-25.7); Calc. Creatinine Clearance 62 mL/min (70-130); Calcium 8.6 mg/dL (7.8-10.44); Carbon Dioxide 29 mmol/L (23-31); Chloride 99 mmol/L (98-107); Estimated GFR 32; Glucose 135 mg/dL (83-110); Potassium 3.9 mmol/L (3.5-5.1); Sodium 138 mmol/L (136-145)
[2022-01-22] MEDS: Piperacillin/Tazobactam 3.375 GM in Sodium Chloride 0.9% 100 ML IVPB SCH ×3 (10:18→23:50)
[2022-01-22] MEDS: Cholecalciferol 1,000 UNITS (25 MCG) TAB PO SCH (10:19)
[2022-01-22] MEDS: Potassium Chloride 20 MEQ TAB PO SCH ×2 (10:19→17:47)
[2022-01-22] MEDS: Insulin Glargine 30 UNITS/0.3 ML VIAL SC SCH ×2 (10:19→21:43)
[2022-01-22] MEDS: Apixaban 5 MG TAB PO SCH ×2 (10:19→21:43)
[2022-01-22] MEDS: Empagliflozin 10 MG TAB PO SCH (10:19)
[2022-01-22] MEDS: Saccharomyces boulardii 250 MG CAP PO SCH (10:20)
[2022-01-22] MEDS: Furosemide 40 MG/4 ML VIAL SLOW IVP SCH (10:22)
[2022-01-22] MEDS: Atorvastatin Calcium 10 MG TAB PO SCH (21:43)
[2022-01-22] MEDS: HYDROcodone/Acetaminophen 5/325 mg Tablet PO PRN (21:43)
[2022-01-22] MEDS: Loratadine 10 MG TAB PO SCH (21:43)
[2022-01-23] MEDS ORDERED: Furosemide 40 MG TAB PO SCH (07:30)
[2022-01-23] MEDS: Potassium Chloride 20 MEQ TAB PO SCH (10:28)
[2022-01-23] MEDS: Apixaban 5 MG TAB PO SCH (10:28)
[2022-01-23] MEDS: Cholecalciferol 1,000 UNITS (25 MCG) TAB PO SCH (10:28)
[2022-01-23] MEDS: HYDROcodone/Acetaminophen 5/325 mg Tablet PO PRN (10:29)
[2022-01-23] MEDS: Empagliflozin 10 MG TAB PO SCH (10:29)
[2022-01-23] MEDS: Saccharomyces boulardii 250 MG CAP PO SCH (10:29)
[2022-01-23] MEDS: Insulin Glargine 30 UNITS/0.3 ML VIAL SC SCH (10:29)
[2022-01-23 12:27] VITALS: BP 126/60; TEMP 98.3
[2022-01-23] MEDS: Piperacillin/Tazobactam 3.375 GM in Sodium Chloride 0.9% 100 ML IVPB SCH (12:33)
== END 2022-01-23 16:20 | DRG 602 ==
LOC: 2NO 02:10
PROVIDERS: ADMIT Internal Medicine; ATTEND Hospitalist
DX: L03.115 Cellulitis of right lower limb (principal); I50.43 Acute on chronic combined systolic (congestive) and diastolic (congestive) heart failure; J96.11 Chronic respiratory failure with hypoxia; Z68.41 Body mass index [BMI] 40.0-44.9, adult; N17.9 Acute kidney failure, unspecified; L97.829 Non-pressure chronic ulcer of other part of left lower leg with unspecified severity; L97.818 Non-pressure chronic ulcer of other part of right lower leg with other specified severity; I42.8 Other cardiomyopathies; Z20.822 Contact with and (suspected) exposure to COVID-19; L03.116 Cellulitis of left lower limb; Z66 Do not resuscitate; E11.9 Type 2 diabetes mellitus without complications; I11.0 Hypertensive heart disease with heart failure; E66.01 Morbid (severe) obesity due to excess calories; D50.9 Iron deficiency anemia, unspecified; E78.00 Pure hypercholesterolemia, unspecified; I48.0 Paroxysmal atrial fibrillation; Z99.81 Dependence on supplemental oxygen; Z88.5 Allergy status to narcotic agent; Z88.8 Allergy status to other drugs, medicaments and biological substances; Z79.01 Long term (current) use of anticoagulants; Z79.899 Other long term (current) drug therapy; Z79.51 Long term (current) use of inhaled steroids; Z79.4 Long term (current) use of insulin; Z98.1 Arthrodesis status; Z85.038 Personal history of other malignant neoplasm of large intestine
CPT/HCPCS: 36415; 36416; 78452; 80048; 82728; 83540; 83550; 83880; 85025; 93017; 93306; 97139; A9500; J0696; J1644; J1815; J1940; J2543; J2785; J3490; U0003; U0005

== ENCOUNTER 2022-04-05 19:12 | Inpatient (IN) | payer MEDICARE, BC ==
[2022-04-05 23:45] VITALS: BMI 45.6
[2022-04-05] MEDS ORDERED: Albuterol 200 PUFF (6.7GM INHALER) INH PRN (23:51)
[2022-04-05] MEDS ORDERED: Ondansetron ODT 4 MG TAB PO PRN (23:53)
[2022-04-05] MEDS ORDERED: Ondansetron PF 4 MG/2 ML Vial IVP PRN (23:53)
[2022-04-05] MEDS ORDERED: Acetaminophen 325 MG TAB PO PRN (23:53)
[2022-04-06] MEDS: HYDROcodone/Acetaminophen 10/325 mg Tablet PO PRN ×3 (01:12→21:59)
[2022-04-06] MEDS ORDERED: Dextrose 5% in Water 1,000 ML IV PRN (01:47)
[2022-04-06] MEDS ORDERED: Dextrose 50% Abboject 50 ML SYRINGE SLOW IVP PRN (01:47)
[2022-04-06] MEDS ORDERED: Piperacillin/Tazobactam 3.375 GM in Sodium Chloride 0.9% 100 ML IVPB SCH ×2 (02:00→06:00)
[2022-04-06] MEDS ORDERED: VANCOMYCIN 2 GRAM/500 ML BAG 2 GM in Premix Bag 1 BAG IVPB SCH (03:00)
[2022-04-06 04:23] LABS: #Eosinphils 0.1 thou/uL (0.0-0.7); #Monocytes 0.7 thou/uL (0.11-0.59); #Neutrophils 13.5 thou/uL (1.40-6.50); %Basophils 0.2 % (0.0-1.0); %Eosinophils 0.7 % (0.0-10.0); %Lymphocytes 6.4 % (21.0-51.0); %Monocytes 4.7 % (0.0-10.0); %Neutrophils 87.9 % (42.0-75.0); Hemoglobin 8.3 g/dL (14.0-18.0); Mean Corpuscular HGB CONC 30.3 g/dL (32.0-36.0); Mean Corpuscular Hemoglobin 27.6 pg (27.0-31.0); Mean Platelet Volume 8.5 fL (7.4-10.4); Platelet Count 158 thou/uL (130-400); RBC Distribution Width 15.8 % (11.5-14.5); Red Blood Cell (RBC) Count 3.01 mill/uL (4.70-6.10); White Blood Cell (WBC) Count 15.4 thou/uL (4.8-10.8)
[2022-04-06 05:21] LABS: Anion Gap 15 mmol/L (10-20); BUN (Urea Nitrogen) 43 mg/dL (8.4-25.7); Calc. Creatinine Clearance 74 mL/min (70-130); Calcium 8.5 mg/dL (7.8-10.44); Carbon Dioxide 22 mmol/L (23-31); Chloride 102 mmol/L (98-107); Estimated GFR 36; Glucose 131 mg/dL (83-110); Potassium 4.1 mmol/L (3.5-5.1); Sodium 135 mmol/L (136-145)
[2022-04-06 08:03] LABS: Glucose 123 mg/dL (83-110)
[2022-04-06 09:07] LABS: Glucose 118 mg/dL (83-110)
[2022-04-06] MEDS: Ferrous Sulfate 325 MG TAB PO SCH (09:34)
[2022-04-06] MEDS: Apixaban 5 MG TAB PO SCH ×2 (09:34→22:00)
[2022-04-06] MEDS: Cholecalciferol 1,000 UNITS (25 MCG) TAB PO SCH (09:34)
[2022-04-06] MEDS: Furosemide 40 MG TAB PO SCH ×2 (09:35→21:59)
[2022-04-06] MEDS: Nystatin Ointment 15 GM TUBE TOP SCH ×2 (09:37→22:03)
[2022-04-06] MEDS: Insulin Glargine 30 UNITS/0.3 ML VIAL SC SCH ×2 (09:38→22:00)
[2022-04-06] MEDS ORDERED: cefTRIAXone\\ROCEPHIN 1 GM in Sodium Chloride 0.9% 100 ML IVPB SCH (10:00)
[2022-04-06 17:25] LABS: Glucose 176 mg/dL (83-110)
[2022-04-06] MEDS: Piperacillin/Tazobactam 3.375 GM in Sodium Chloride 0.9% 100 ML IVPB SCH (17:49)
[2022-04-06] MEDS: HumaLOG 300 UNITS/3 ML VIAL SC PRN (17:50)
[2022-04-06] MEDS ORDERED: Polyethylene Glycol 3350 17 GM Packet PO SCH (20:00)
[2022-04-06] MEDS: Lisinopril 5 MG TAB PO SCH (22:01)
[2022-04-06] MEDS: Atorvastatin Calcium 10 MG TAB PO SCH (22:02)
[2022-04-07] MEDS: Piperacillin/Tazobactam 3.375 GM in Sodium Chloride 0.9% 100 ML IVPB SCH ×3 (02:47→17:43)
[2022-04-07] MEDS ORDERED: VANCOMYCIN 2 GRAM/500 ML BAG 2 GM in Premix Bag 1 BAG IVPB SCH (03:00)
[2022-04-07 04:27] LABS: #Eosinphils 0.2 thou/uL (0.0-0.7); #Lymphocytes 1.2 thou/uL (1.20-3.40); #Monocytes 0.8 thou/uL (0.11-0.59); #Neutrophils 10.9 thou/uL (1.40-6.50); %Basophils 0.1 % (0.0-1.0); %Eosinophils 1.2 % (0.0-10.0); %Lymphocytes 9.2 % (21.0-51.0); %Monocytes 5.8 % (0.0-10.0); %Neutrophils 83.7 % (42.0-75.0); Hemoglobin 8.4 g/dL (14.0-18.0); Mean Corpuscular HGB CONC 30.4 g/dL (32.0-36.0); Mean Corpuscular Hemoglobin 27.5 pg (27.0-31.0); Mean Corpuscular Volume 90.6 fL (78.0-98.0); Mean Platelet Volume 8.5 fL (7.4-10.4); Platelet Count 174 thou/uL (130-400); RBC Distribution Width 15.8 % (11.5-14.5); Red Blood Cell (RBC) Count 3.03 mill/uL (4.70-6.10)
[2022-04-07 04:48] LABS: Anion Gap 14 mmol/L (10-20); BUN (Urea Nitrogen) 45 mg/dL (8.4-25.7); Calc. Creatinine Clearance 73 mL/min (70-130); Calcium 8.6 mg/dL (7.8-10.44); Carbon Dioxide 22 mmol/L (23-31); Chloride 102 mmol/L (98-107); Estimated GFR 35; Glucose 129 mg/dL (83-110); Potassium 4.1 mmol/L (3.5-5.1); Sodium 134 mmol/L (136-145)
[2022-04-07 08:46] LABS: Glucose 100 mg/dL (83-110)
[2022-04-07] MEDS: Apixaban 5 MG TAB PO SCH ×2 (09:25→21:34)
[2022-04-07] MEDS: Ferrous Sulfate 325 MG TAB PO SCH (09:25)
[2022-04-07] MEDS: Cholecalciferol 1,000 UNITS (25 MCG) TAB PO SCH (09:25)
[2022-04-07] MEDS: Furosemide 40 MG TAB PO SCH ×2 (09:25→21:34)
[2022-04-07] MEDS: Insulin Glargine 30 UNITS/0.3 ML VIAL SC SCH ×2 (09:26→21:34)
[2022-04-07] MEDS: Nystatin Ointment 15 GM TUBE TOP SCH ×2 (09:28→22:49)
[2022-04-07 11:55] LABS: Glucose 125 mg/dL (83-110)
[2022-04-07] MEDS ORDERED: cefTRIAXone\\ROCEPHIN 1 GM in Sodium Chloride 0.9% 100 ML IVPB SCH (17:00)
[2022-04-07 18:02] LABS: Glucose 121 mg/dL (83-110)
[2022-04-07] MEDS ORDERED: Vancomycin 1 GM in Premix Bag 1 BAG IVPB SCH (21:00)
[2022-04-07] MEDS: Lisinopril 5 MG TAB PO SCH (21:33)
[2022-04-07] MEDS: HYDROcodone/Acetaminophen 10/325 mg Tablet PO PRN (21:33)
[2022-04-07] MEDS: Atorvastatin Calcium 10 MG TAB PO SCH (21:33)
[2022-04-07 21:43] LABS: Glucose 138 mg/dL (83-110)
[2022-04-08 02:41] LABS: #Eosinphils 0.2 thou/uL (0.0-0.7); #Lymphocytes 1.4 thou/uL (1.20-3.40); #Monocytes 0.8 thou/uL (0.11-0.59); %Basophils 0.1 % (0.0-1.0); %Eosinophils 2.1 % (0.0-10.0); %Lymphocytes 12.4 % (21.0-51.0); %Monocytes 6.8 % (0.0-10.0); %Neutrophils 78.6 % (42.0-75.0); Hemoglobin 8.6 g/dL (14.0-18.0); Mean Corpuscular Hemoglobin 26.9 pg (27.0-31.0); Mean Corpuscular Volume 89.7 fL (78.0-98.0); Mean Platelet Volume 8.2 fL (7.4-10.4); Platelet Count 187 thou/uL (130-400); RBC Distribution Width 15.8 % (11.5-14.5); Red Blood Cell (RBC) Count 3.18 mill/uL (4.70-6.10); White Blood Cell (WBC) Count 11.5 thou/uL (4.8-10.8)
[2022-04-08] MEDS: Piperacillin/Tazobactam 3.375 GM in Sodium Chloride 0.9% 100 ML IVPB SCH ×3 (02:54→18:28)
[2022-04-08 02:56] LABS: Vancomycin, Trough 24.1 ug/mL
[2022-04-08] MEDS ORDERED: VANCOMYCIN 2 GRAM/500 ML BAG 2 GM in Premix Bag 1 BAG IVPB SCH (03:00)
[2022-04-08 03:08] LABS: Anion Gap 14 mmol/L (10-20); BUN (Urea Nitrogen) 43 mg/dL (8.4-25.7); Calc. Creatinine Clearance 70 mL/min (70-130); Calcium 8.7 mg/dL (7.8-10.44); Carbon Dioxide 23 mmol/L (23-31); Chloride 103 mmol/L (98-107); Estimated GFR 34; Glucose 112 mg/dL (83-110); Potassium 3.9 mmol/L (3.5-5.1); Sodium 136 mmol/L (136-145)
[2022-04-08 05:31] LABS: Glucose 104 mg/dL (83-110)
[2022-04-08] MEDS: Ferrous Sulfate 325 MG TAB PO SCH (08:42)
[2022-04-08] MEDS: Furosemide 40 MG TAB PO SCH ×2 (08:43→20:56)
[2022-04-08] MEDS: Insulin Glargine 30 UNITS/0.3 ML VIAL SC SCH ×2 (08:44→20:57)
[2022-04-08] MEDS: Cholecalciferol 1,000 UNITS (25 MCG) TAB PO SCH (08:44)
[2022-04-08] MEDS: Apixaban 5 MG TAB PO SCH ×2 (08:44→20:57)
[2022-04-08] MEDS: Nystatin Ointment 15 GM TUBE TOP SCH ×2 (08:45→20:57)
[2022-04-08] MEDS: Vancomycin 1.5 GRAM/300 ML BAG 1.5 GM in Premix Bag 1 BAG IVPB SCH (09:13)
[2022-04-08 11:48] LABS: Glucose 113 mg/dL (83-110)
[2022-04-08] MEDS: HYDROcodone/Acetaminophen 10/325 mg Tablet PO PRN ×2 (18:28→21:33)
[2022-04-08] MEDS: Atorvastatin Calcium 10 MG TAB PO SCH (20:56)
[2022-04-08] MEDS: Lisinopril 5 MG TAB PO SCH (20:56)
[2022-04-09] MEDS: Piperacillin/Tazobactam 3.375 GM in Sodium Chloride 0.9% 100 ML IVPB SCH ×3 (02:03→17:43)
[2022-04-09 05:08] LABS: #Eosinphils 0.3 thou/uL (0.0-0.7); #Lymphocytes 1.4 thou/uL (1.20-3.40); #Monocytes 1.1 thou/uL (0.11-0.59); #Neutrophils 8.9 thou/uL (1.40-6.50); %Basophils 0.3 % (0.0-1.0); %Eosinophils 2.2 % (0.0-10.0); %Lymphocytes 11.9 % (21.0-51.0); %Monocytes 9.3 % (0.0-10.0); %Neutrophils 76.3 % (42.0-75.0); Hemoglobin 8.9 g/dL (14.0-18.0); Mean Corpuscular HGB CONC 30.3 g/dL (32.0-36.0); Mean Corpuscular Hemoglobin 27.5 pg (27.0-31.0); Mean Corpuscular Volume 90.8 fL (78.0-98.0); Mean Platelet Volume 8.1 fL (7.4-10.4); Platelet Count 186 thou/uL (130-400); RBC Distribution Width 15.8 % (11.5-14.5); Red Blood Cell (RBC) Count 3.23 mill/uL (4.70-6.10); White Blood Cell (WBC) Count 11.7 thou/uL (4.8-10.8)
[2022-04-09 05:33] LABS: Anion Gap 12 mmol/L (10-20); BUN (Urea Nitrogen) 41 mg/dL (8.4-25.7); Calc. Creatinine Clearance 69 mL/min (70-130); Calcium 8.5 mg/dL (7.8-10.44); Carbon Dioxide 26 mmol/L (23-31); Chloride 103 mmol/L (98-107); Estimated GFR 33; Glucose 124 mg/dL (83-110); Potassium 3.7 mmol/L (3.5-5.1); Sodium 137 mmol/L (136-145)
[2022-04-09 08:50] LABS: Glucose 126 mg/dL (83-110)
[2022-04-09 08:53] LABS: Vancomycin, Random 26.5 ug/mL (See Comment)
[2022-04-09] MEDS: Furosemide 40 MG TAB PO SCH ×2 (09:33→20:56)
[2022-04-09] MEDS: Apixaban 5 MG TAB PO SCH ×2 (09:33→20:56)
[2022-04-09] MEDS: Ferrous Sulfate 325 MG TAB PO SCH (09:33)
[2022-04-09] MEDS: Cholecalciferol 1,000 UNITS (25 MCG) TAB PO SCH (09:33)
[2022-04-09] MEDS: Nystatin Ointment 15 GM TUBE TOP SCH ×2 (09:34→20:59)
[2022-04-09] MEDS: Insulin Glargine 30 UNITS/0.3 ML VIAL SC SCH ×2 (09:34→20:57)
[2022-04-09] MEDS: Vancomycin 1.5 GRAM/300 ML BAG 1.5 GM in Premix Bag 1 BAG IVPB SCH (09:39)
[2022-04-09 11:59] LABS: Glucose 109 mg/dL (83-110)
[2022-04-09] MEDS ORDERED: Piperacillin/Tazobactam 3.375 GM VIAL ONE (17:26)
[2022-04-09] MEDS: Atorvastatin Calcium 10 MG TAB PO SCH (20:56)
[2022-04-09] MEDS: Lisinopril 5 MG TAB PO SCH (20:56)
[2022-04-09] MEDS: HYDROcodone/Acetaminophen 10/325 mg Tablet PO PRN (23:57)
[2022-04-10] MEDS: Piperacillin/Tazobactam 3.375 GM in Sodium Chloride 0.9% 100 ML IVPB SCH ×2 (02:09→09:38)
[2022-04-10 04:40] LABS: #Eosinphils 0.2 thou/uL (0.0-0.7); #Lymphocytes 1.1 thou/uL (1.20-3.40); #Monocytes 1.2 thou/uL (0.11-0.59); #Neutrophils 12.4 thou/uL (1.40-6.50); %Basophils 0.1 % (0.0-1.0); %Lymphocytes 7.6 % (21.0-51.0); %Monocytes 7.8 % (0.0-10.0); %Neutrophils 83.6 % (42.0-75.0); Hemoglobin 8.6 g/dL (14.0-18.0); Mean Corpuscular HGB CONC 30.8 g/dL (32.0-36.0); Mean Corpuscular Hemoglobin 27.8 pg (27.0-31.0); Mean Corpuscular Volume 90.1 fl (78.0-98.0); Platelet Count 191 thou/uL (130-400); RBC Distribution Width 15.9 % (11.5-14.5); Red Blood Cell (RBC) Count 3.08 mill/uL (4.70-6.10); White Blood Cell (WBC) Count 14.9 thou/uL (4.8-10.8)
[2022-04-10 05:05] LABS: Anion Gap 10 mmol/L (10-20); BUN (Urea Nitrogen) 38 mg/dL (8.4-25.7); Calc. Creatinine Clearance 71 mL/min (70-130); Calcium 8.2 mg/dL (7.8-10.44); Carbon Dioxide 26 mmol/L (23-31); Chloride 104 mmol/L (98-107); Estimated GFR 34; Glucose 88 mg/dL (83-110); Potassium 3.3 mmol/L (3.5-5.1); Sodium 137 mmol/L (136-145)
[2022-04-10] MEDS ORDERED: Vancomycin 1 GM in Premix Bag 1 BAG IVPB SCH (09:00)
[2022-04-10] MEDS: Ferrous Sulfate 325 MG TAB PO SCH (09:37)
[2022-04-10] MEDS: Furosemide 40 MG TAB PO SCH ×2 (09:38→20:54)
[2022-04-10] MEDS: Apixaban 5 MG TAB PO SCH ×2 (09:38→20:54)
[2022-04-10] MEDS: Insulin Glargine 30 UNITS/0.3 ML VIAL SC SCH ×2 (09:38→20:57)
[2022-04-10] MEDS: Cholecalciferol 1,000 UNITS (25 MCG) TAB PO SCH (09:38)
[2022-04-10] MEDS: Nystatin Ointment 15 GM TUBE TOP SCH ×2 (09:38→22:19)
[2022-04-10] MEDS: HYDROcodone/Acetaminophen 10/325 mg Tablet PO PRN ×2 (09:39→23:15)
[2022-04-10] MEDS: Clindamycin 150 MG CAP PO SCH ×2 (15:52→20:54)
[2022-04-10] MEDS: Ciprofloxacin 500 MG TAB PO SCH (20:54)
[2022-04-10] MEDS: Atorvastatin Calcium 10 MG TAB PO SCH (20:54)
[2022-04-10] MEDS: Lisinopril 5 MG TAB PO SCH (20:54)
[2022-04-11 04:57] LABS: #Eosinphils 0.2 thou/uL (0.0-0.7); #Lymphocytes 1.2 thou/uL (1.20-3.40); #Monocytes 1.1 thou/uL (0.11-0.59); #Neutrophils 12.6 thou/uL (1.40-6.50); %Basophils 0.1 % (0.0-1.0); %Eosinophils 1.3 % (0.0-10.0); %Lymphocytes 7.7 % (21.0-51.0); %Monocytes 7.3 % (0.0-10.0); %Neutrophils 83.7 % (42.0-75.0); Hemoglobin 8.5 g/dL (14.0-18.0); Mean Corpuscular HGB CONC 30.5 g/dL (32.0-36.0); Mean Corpuscular Hemoglobin 27.8 pg (27.0-31.0); Mean Corpuscular Volume 91.1 fl (78.0-98.0); Mean Platelet Volume 8.6 fL (7.4-10.4); Platelet Count 177 thou/uL (130-400); RBC Distribution Width 15.7 % (11.5-14.5); Red Blood Cell (RBC) Count 3.04 mill/uL (4.70-6.10); White Blood Cell (WBC) Count 15.1 thou/uL (4.8-10.8)
[2022-04-11] MEDS: Clindamycin 150 MG CAP PO SCH ×3 (05:40→20:40)
[2022-04-11 06:06] LABS: Anion Gap 11 mmol/L (10-20); BUN (Urea Nitrogen) 38 mg/dL (8.4-25.7); Calc. Creatinine Clearance 74 mL/min (70-130); Calcium 8.2 mg/dL (7.8-10.44); Carbon Dioxide 25 mmol/L (23-31); Chloride 103 mmol/L (98-107); Estimated GFR 37; Glucose 69 mg/dL (83-110); Potassium 3.3 mmol/L (3.5-5.1); Sodium 136 mmol/L (136-145)
[2022-04-11] MEDS: Ferrous Sulfate 325 MG TAB PO SCH (09:45)
[2022-04-11] MEDS: Apixaban 5 MG TAB PO SCH ×2 (09:45→20:40)
[2022-04-11] MEDS: Furosemide 40 MG TAB PO SCH ×2 (09:45→20:40)
[2022-04-11] MEDS: Ciprofloxacin 500 MG TAB PO SCH ×2 (09:45→20:40)
[2022-04-11] MEDS: Cholecalciferol 1,000 UNITS (25 MCG) TAB PO SCH (09:45)
[2022-04-11] MEDS: HYDROcodone/Acetaminophen 10/325 mg Tablet PO PRN (09:46)
[2022-04-11] MEDS: Insulin Glargine 30 UNITS/0.3 ML VIAL SC SCH ×2 (09:47→20:39)
[2022-04-11] MEDS: Nystatin Ointment 15 GM TUBE TOP SCH ×2 (09:49→20:41)
[2022-04-11] MEDS: Albuterol Sulfate 2.5 mg/3 ml Neb NEB SCH ×2 (18:46→23:23)
[2022-04-11] MEDS: Lisinopril 5 MG TAB PO SCH (20:40)
[2022-04-11] MEDS: Atorvastatin Calcium 10 MG TAB PO SCH (20:40)
[2022-04-11 21:34] LABS: SARS-CoV-2 NAA Rapid Test Not Detected (NotDetected)
[2022-04-12 04:22] LABS: ALT (SGPT) 14 U/L (8-55); AST (SGOT) 28 U/L (5-34); Albumin 2.5 g/dL (3.4-4.8); Alkaline Phosphatase 101 U/L (40-110); Anion Gap 11 mmol/L (10-20); BUN (Urea Nitrogen) 39 mg/dL (8.4-25.7); Bilirubin, Total 0.6 mg/dL (0.2-1.2); Calc. Creatinine Clearance 69 mL/min (70-130); Calcium 8.2 mg/dL (7.8-10.44); Carbon Dioxide 26 mmol/L (23-31); Chloride 101 mmol/L (98-107); Estimated GFR 33; Globulin 4.1 g/dL (2.4-3.5); Glucose 200 mg/dL (83-110); Potassium 3.4 mmol/L (3.5-5.1); Protein, Total 6.6 g/dL (5.8-8.1); Sodium 135 mmol/L (136-145)
[2022-04-12 04:44] LABS: #Eosinphils 0.2 thou/uL (0.0-0.7); #Lymphocytes 0.9 thou/uL (1.20-3.40); #Monocytes 0.8 thou/uL (0.11-0.59); #Neutrophils 11.1 thou/uL (1.40-6.50); %Basophils 0.1 % (0.0-1.0); %Eosinophils 1.5 % (0.0-10.0); %Lymphocytes 6.9 % (21.0-51.0); %Monocytes 5.8 % (0.0-10.0); %Neutrophils 85.7 % (42.0-75.0); Hemoglobin 8.5 g/dL (14.0-18.0); Mean Corpuscular HGB CONC 30.9 g/dL (32.0-36.0); Mean Corpuscular Hemoglobin 28.2 pg (27.0-31.0); Mean Corpuscular Volume 91.2 fl (78.0-98.0); Mean Platelet Volume 8.6 fL (7.4-10.4); Platelet Count 165 thou/uL (130-400); RBC Distribution Width 15.6 % (11.5-14.5); Red Blood Cell (RBC) Count 3.01 mill/uL (4.70-6.10)
[2022-04-12] MEDS: Clindamycin 150 MG CAP PO SCH ×2 (05:13→13:31)
[2022-04-12] MEDS: HumaLOG 300 UNITS/3 ML VIAL SC PRN (06:12)
[2022-04-12] MEDS: Albuterol Sulfate 2.5 mg/3 ml Neb NEB SCH ×2 (06:55→13:25)
[2022-04-12] MEDS ORDERED: Potassium Chloride 20 MEQ TAB PO SCH (07:45)
[2022-04-12 08:19] LABS: Vancomycin, Trough 20.3 ug/mL
[2022-04-12] MEDS: Cholecalciferol 1,000 UNITS (25 MCG) TAB PO SCH (09:06)
[2022-04-12] MEDS: Ferrous Sulfate 325 MG TAB PO SCH (09:06)
[2022-04-12] MEDS: HYDROcodone/Acetaminophen 10/325 mg Tablet PO PRN (09:06)
[2022-04-12] MEDS: Furosemide 40 MG TAB PO SCH (09:06)
[2022-04-12] MEDS: Apixaban 5 MG TAB PO SCH (09:06)
[2022-04-12] MEDS: Ciprofloxacin 500 MG TAB PO SCH (09:06)
[2022-04-12] MEDS: Insulin Glargine 30 UNITS/0.3 ML VIAL SC SCH (09:08)
[2022-04-12] MEDS: Nystatin Ointment 15 GM TUBE TOP SCH (09:09)
[2022-04-12 12:53] VITALS: BP 100/57; TEMP 98.7
[2022-04-12] MEDS ORDERED: Furosemide 40 MG TAB PO SCH (21:00)
== END 2022-04-12 14:45 | disposition home or self-care (01) | DRG 872 ==
LOC: 2NO 23:10
PROVIDERS: ADMIT Internal Medicine; ATTEND Internal Medicine
DX: A41.9 Sepsis, unspecified organism (principal); L03.115 Cellulitis of right lower limb; L03.116 Cellulitis of left lower limb; J96.11 Chronic respiratory failure with hypoxia; I42.8 Other cardiomyopathies; I50.42 Chronic combined systolic (congestive) and diastolic (congestive) heart failure; I13.0 Hypertensive heart and chronic kidney disease with heart failure and stage 1 through stage 4 chronic kidney disease, or unspecified chronic kidney disease; Z68.42 Body mass index [BMI] 45.0-49.9, adult; N18.9 Chronic kidney disease, unspecified; E11.22 Type 2 diabetes mellitus with diabetic chronic kidney disease; I48.91 Unspecified atrial fibrillation; E66.01 Morbid (severe) obesity due to excess calories; G47.33 Obstructive sleep apnea (adult) (pediatric); E78.5 Hyperlipidemia, unspecified; F32.A Depression, unspecified; Z20.822 Contact with and (suspected) exposure to COVID-19; Z79.01 Long term (current) use of anticoagulants; Z88.5 Allergy status to narcotic agent; Z79.899 Other long term (current) drug therapy; Z79.51 Long term (current) use of inhaled steroids; Z79.4 Long term (current) use of insulin; Z98.890 Other specified postprocedural states; Z90.49 Acquired absence of other specified parts of digestive tract
CPT/HCPCS: 36415; 36416; 71045; 80048; 80053; 80202; 82947; 83880; 84145; 85025; 94640; 97139; J0696; J1815; J2543; J3370; J3490; J7611; U0003; U0005

== ENCOUNTER 2022-05-02 17:28 | Observation (INO) | payer MEDICARE, BC ==
[2022-05-02 18:50] LABS: #Eosinphils 0.3 thou/uL (0.0-0.7); #Lymphocytes 0.8 thou/uL (1.20-3.40); #Monocytes 0.7 thou/uL (0.11-0.59); #Neutrophils 9.1 thou/uL (1.40-6.50); %Basophils 0.2 % (0.0-1.0); %Eosinophils 2.8 % (0.0-10.0); %Lymphocytes 7.1 % (21.0-51.0); %Monocytes 6.7 % (0.0-10.0); %Neutrophils 83.1 % (42.0-75.0); Hemoglobin 8.1 g/dL (14.0-18.0); Mean Corpuscular HGB CONC 29.7 g/dL (32.0-36.0); Mean Corpuscular Volume 90.8 fl (78.0-98.0); Mean Platelet Volume 8.1 fL (7.4-10.4); Platelet Count 177 10x3/uL (130-400); RBC Distribution Width 15.9 % (11.5-14.5); Red Blood Cell (RBC) Count 2.99 mill/uL (4.70-6.10)
[2022-05-02 19:09] LABS: Sodium 137 mmol/L (136-145)
[2022-05-02 19:10] LABS: ALT (SGPT) 18 U/L (8-55); AST (SGOT) 26 U/L (5-34); Albumin 2.9 g/dL (3.4-4.8); Alkaline Phosphatase 105 U/L (40-110); Anion Gap 12 mmol/L (10-20); BUN (Urea Nitrogen) 32 mg/dL (8.4-25.7); Bilirubin, Total 0.7 mg/dL (0.2-1.2); Calc. Creatinine Clearance 0 mL/min (70-130); Calcium 8.5 mg/dL (7.8-10.44); Carbon Dioxide 28 mmol/L (23-31); Chloride 101 mmol/L (98-107); Estimated GFR 44; Globulin 4.4 g/dL (2.4-3.5); Glucose 147 mg/dL (83-110); Potassium 3.6 mmol/L (3.5-5.1); Protein, Total 7.3 g/dL (5.8-8.1)
[2022-05-02 19:15] LABS: Hypochromia SLIGHT = 6-15 cells (100X) (0-5/hpf); MDiff Complete? YES; Platelet Morphology Comment Appears Adequate; Polychromasia SLIGHT = 2-3 cells (100X) (0-2/hpf); Tear Drops SLIGHT = 2-5 cells (100X) (0-1/hpf)
[2022-05-02] MEDS ORDERED: Clindamycin/D5W 600 mg/50 ml Premix Bag ONE (20:19)
[2022-05-02] MEDS ORDERED: Albuterol 200 PUFF (6.7GM INHALER) INH PRN (21:12)
[2022-05-02] MEDS ORDERED: Senokot S 8.6-50 MG TAB PO PRN (21:16)
[2022-05-02] MEDS ORDERED: Acetaminophen 325 MG TAB PO PRN (21:16)
[2022-05-02] MEDS ORDERED: HYDROcodone/Acetaminophen 5/325 mg Tablet PO PRN (21:16)
[2022-05-02] MEDS ORDERED: Dextrose 50% Abboject 50 ML SYRINGE SLOW IVP PRN (21:18)
[2022-05-02] MEDS ORDERED: Insulin Regular 300 UNITS/3 ML VIAL SC PRN (21:18)
[2022-05-02] MEDS ORDERED: Dextrose 5% in Water 1,000 ML IV PRN (21:18)
[2022-05-02 21:32] VITALS: BMI 46.7
[2022-05-03 07:09] LABS: #Eosinphils 0.4 thou/uL (0.0-0.7); #Monocytes 0.8 thou/uL (0.11-0.59); %Basophils 0.4 % (0.0-1.0); %Eosinophils 3.6 % (0.0-10.0); %Lymphocytes 9.7 % (21.0-51.0); %Monocytes 7.5 % (0.0-10.0); %Neutrophils 78.9 % (42.0-75.0); Hemoglobin 8.2 g/dL (14.0-18.0); Mean Corpuscular HGB CONC 31.1 g/dL (32.0-36.0); Mean Corpuscular Hemoglobin 27.9 pg (27.0-31.0); Mean Corpuscular Volume 89.7 fl (78.0-98.0); Mean Platelet Volume 8.3 fL (7.4-10.4); Platelet Count 171 10x3/uL (130-400); RBC Distribution Width 15.9 % (11.5-14.5); Red Blood Cell (RBC) Count 2.95 mill/uL (4.70-6.10); White Blood Cell (WBC) Count 10.2 10x3/uL (4.8-10.8)
[2022-05-03 07:25] LABS: Anion Gap 11 mmol/L (10-20); BUN (Urea Nitrogen) 32 mg/dL (8.4-25.7); Calc. Creatinine Clearance 88 mL/min (70-130); Calcium 8.5 mg/dL (7.8-10.44); Carbon Dioxide 29 mmol/L (23-31); Chloride 104 mmol/L (98-107); Estimated GFR 44; Glucose 118 mg/dL (83-110); Potassium 3.8 mmol/L (3.5-5.1); Sodium 140 mmol/L (136-145)
[2022-05-03 08:02] VITALS: TEMP 98.8
[2022-05-03] MEDS ORDERED: Famotidine 20 MG TAB PO SCH ×2 (09:00→21:00)
[2022-05-03] MEDS ORDERED: FLU VACC QS2022-23(65YR UP)/PF 240 MCG/0.7 ML SYRINGE IM ONE (09:00)
[2022-05-03] MEDS ORDERED: Sertraline 100 MG TAB PO SCH (09:00)
[2022-05-03] MEDS ORDERED: Apixaban 5 MG TAB PO SCH (09:00)
[2022-05-03] MEDS ORDERED: Furosemide 100 MG/10 ML VIAL SLOW IVP SCH (09:00)
[2022-05-03 13:01] VITALS: BP 106/64
[2022-05-03] MEDS ORDERED: Lisinopril 5 MG TAB PO SCH (21:00)
[2022-05-03] MEDS ORDERED: Atorvastatin Calcium 10 MG TAB PO SCH (21:00)
== END 2022-05-03 14:08 | disposition home health service (06) ==
LOC: ERS 17:28 → T4-B 20:23
PROVIDERS: ADMIT Internal Medicine; ATTEND Internal Medicine
DX: R60.0 Localized edema (principal); R23.8 Other skin changes; I13.0 Hypertensive heart and chronic kidney disease with heart failure and stage 1 through stage 4 chronic kidney disease, or unspecified chronic kidney disease; E11.22 Type 2 diabetes mellitus with diabetic chronic kidney disease; N18.9 Chronic kidney disease, unspecified; I50.33 Acute on chronic diastolic (congestive) heart failure; D63.1 Anemia in chronic kidney disease; I48.0 Paroxysmal atrial fibrillation; E78.5 Hyperlipidemia, unspecified; I89.0 Lymphedema, not elsewhere classified; I87.2 Venous insufficiency (chronic) (peripheral); E66.01 Morbid (severe) obesity due to excess calories; Z68.42 Body mass index [BMI] 45.0-49.9, adult; Z85.038 Personal history of other malignant neoplasm of large intestine; Z79.01 Long term (current) use of anticoagulants; Z79.4 Long term (current) use of insulin; Z79.899 Other long term (current) drug therapy; Z88.5 Allergy status to narcotic agent; Z88.8 Allergy status to other drugs, medicaments and biological substances; Z74.01 Bed confinement status; Z20.822 Contact with and (suspected) exposure to COVID-19
CPT/HCPCS: 80048; 80053; 82962 ×2; 83605; 83880; 85025 ×2; 90662; 96365; 96375; 97139; 99284; G0008; G0378 ×3; U0003; U0005; 36415; 36416; 90471; J1940; J3490